=== PATIENT | male | born 1965 | race Hispanic/Latino ===

== ENCOUNTER 2025-02-18 01:30 | Inpatient (IN) | payer OTHER ==
[~2025-02-18] VITALS: Ht 172.7 cm; Wt 93.8 kg
[2025-02-18] VITALS (52 sets, daily range): BP systolic 99–140; BP diastolic 50–89; PULSE 64–81; RESP 10–26; TEMP 97.8–98.9; O2SAT 97–99
[2025-02-18] MEDS ORDERED: HEParin 10,000 UNIT/10ML (1,000 UNIT/ML) VIAL ONE (01:47)
[2025-02-18] MEDS ORDERED: LIDOCAINE HCL 400MG/20ML VIAL ONE (01:47)
[2025-02-18] MEDS ORDERED: IOHEXOL 350 MG/ML 100ML INFUS..BTL IV ONE (01:47)
[2025-02-18] MEDS ORDERED: ATROPINE 1MG SYG IVP ONE (01:47)
[2025-02-18] MEDS ORDERED: DOPamine HCL 400 MG/D5%-WATER 0 ML IV ONE (01:48)
[2025-02-18] MEDS ORDERED: HEParin-NS 1,000 UNIT/500 ML 1,000 ML IV ONE (01:48)
[2025-02-18] MEDS ORDERED: NITROGLYCERIN 50MG VIAL ONE (01:48)
[2025-02-18] MEDS ORDERED: BIVALIRUDIN 250 MG/VIAL IV ONE (01:55)
[2025-02-18] MEDS ORDERED: morPHINE 4 MG SYG ONE (02:10)
[2025-02-18] MEDS ORDERED: HEParin-NS 1,000 UNIT/500 ML 500 ML IV ONE (02:37)
[2025-02-18] MEDS ORDERED: EPTIFIBATIDE 2 MG/ML 10 ML VIAL IVP ONE (02:55)
[2025-02-18] MEDS ORDERED: D5W IV ONE (02:59)
[2025-02-18] MEDS ORDERED: HEPARIN 25000 UNIT/250 ML IV ONE (02:59)
[2025-02-18] MEDS ORDERED: EPTIFIBATIDE 75MG/100ML BOTTLE 100 ML IV ONE (03:00)
[2025-02-18] MEDS ORDERED: morPHINE 2 MG SYG ONE (03:04)
--- NOTE | 2025-02-18 03:29 | PRN ---
Cath Procedure Report CATH PROCEDURE REPORT CARDIAC CATHETERIZATION REPORT Date of Service: February 18, 2025 Left heart catheterization and PCI report After informed consent the patient was prepped and draped in the usual fashion. He presented to [facility] with an acute inferior wall ST-elevation DC. While there he received aspirin 325 clopidogrel 600 and heparin 8000 bolus and heparin drip. The patient was given 3 mg of morphine for severe pain. A six Cymraes sheath was introduced into the right femoral artery using modified Se ldinger technique. A Karen four right six guiding catheter with side holes was advanced over guidewire to the aortic root. Wire was removed and catheter engaged into the [place] creek right coronary artery. Visualization of the artery demonstrated occlusion of the mid RCA. A choice PT extra-support wire was placed across the area of stenosis into the posterolateral branch. There was reperfusion of the RCA after crossing the stenosis with the wire. Attempts to pass a 4.0 x 18 mm drug-eluting stent were unsuccessful due to severity of stenosis. In addition the guiding catheter provided poor backup. Wire and catheter removed and and AL1 guiding catheter was advanced over guidewire to the aortic root. Wire was removed and catheter engaged into the dry creek right coronary artery. A choice PT extra-support wire was then plastic again through the stenosis into the posterolateral branch. Attempts to pass the stent were unsuccessful even with guiding support. The stent was removed and a 2.5 x 12 mm balloon advanced but again would not cross the area of stenosis. Even a 1.5 x 12 mm balloon would not cross. A rudy wire was then placed in the 1.5 mm balloon was successfully crossed and dilated to eight atmospheres. Balloon was removed and the artery was then dilated with a 2.5 x 12 mm balloon. Again attempts to cross with the stent were unsuccessful and the stent was removed. A three point 0 by 15 mm balloon was then used to dilate the area of stenosis to 12 atmospheres. Balloon was removed and the 4.0 x 18 mm stent was then successfully placed across the area of stenosis and dilated to 13 atmospheres. Stenosis was reduced from 100% to 0% with normal SERGIO flow. Wires and catheter was removed and the vessel was then re visualized with a Karen four right six Cymraes diagnostic catheter which showed the stent to be widely patent but did show some distal thrombus. The patient received an Integrilin bolus and Integrilin drip was started. Heparin was restarted. Catheter was removed and a Karen four left six Cymraes diagnostic catheter was advanced over guidewire to the aortic root. The left coronary system was visualized in multiple views. This demonstrated a widely patent left main and LAD and diagonal arteries. The circumflex artery is a nondominant vessel and gives rise to a single large obtuse marginal artery. There was a mid 80% stenosis in the circumflex artery before the obtuse marginal artery. The catheter was removed and a pigtail catheter was then advanced over guidewire and across the aortic valve. Hemodynamics measured and a pullback with a continuous hemodynamic monitoring was performed. There was no evidence of aortic stenosis left ventricular end- diastolic pressure was 22 mm Hg. Summary: Successful drug-eluting stent to the mid RCA with distal thrombus in the posterolateral branch and PDA treated with Integrilin and heparin. The patient has been transferred to the intensive care unit with line in place for further management. Report dictated by HORACIO Valencia MD, MD February 18, 2025 03:29
[2025-02-18] MEDS: ondanSETRON 4MG INJ IVP SCH (03:30)
[2025-02-18] MEDS ORDERED: EPTIFIBATIDE 75MG/100ML BOTTLE 100 ML IV SCH (03:30)
[2025-02-18] MEDS ORDERED: TEMAZepam 30 MG CAP PO PRN (03:30)
[2025-02-18] MEDS ORDERED: ondanSETRON 4MG INJ IVP PRN (03:30)
--- NOTE | 2025-02-18 03:33 | CONS ---
[facility] Cardiology Consultation Note Chief complaint: This is a 59-year-old male who was transferred from [facility] with an acute inferior wall ST-elevation [place]. History of present illness: The patient has been having some residual pains over the last few days that he attributed to indigestion. Pain at this point it woke him from sleep and would not resolve. He had some associated shortness of breath and came to the emergency room at [facility] where EKG showed ST elevations inferiorly with reciprocal changes anteriorly. He was treated with aspirin full dose loading of clopidogrel and heparin and placed on a heparin drip and transferred emergently for left heart catheterization. Past medical history: He has a history of hypertension diabetes and dyslipidemia. Review of systems: No syncope PND orthopnea palpitations or edema. Allergies: No known allergies Social history: He is a nonsmoker Prior surgical history unknown Physical exam: Blood pressure 130/70 heart rate in the 70s and regular. There was no elevation of the jugular venous pressure with no bruits or murmurs appreciable. S1 normal S2 physiologically split. Abdomen obese soft nontender. Extremities show no edema. Dorsalis pedis pulses are 2+ bilaterally radial pulses 2+ bilaterally. Laboratory studies: Has been ordered and are pending. Assessment: 1. Acute inferior wall ST-elevation [place] 2. Diabetes mellitus type 2 3. Dyslipidemia 4. Hypertension Plan: Risks and benefits of left heart catheterization PCI has been fully discussed and patient request to proceed. HORACIO SAMS MD February 18, 2025 03:33
[2025-02-18] MEDS ORDERED: DEXTROSE 50%-WATER 50 ML DISP.SYRIN IV PRN (04:00)
[2025-02-18] MEDS ORDERED: GLUCAGON 1MG KIT 1 MG ML IM PRN (04:00)
[2025-02-18] MEDS ORDERED: HEParin 5,000 UNIT VIAL IV PRN (04:30)
[2025-02-18] MEDS: acetaMINOPHEN WITH coDEINE 1 TAB TAB PO PRN ×2 (04:54→09:59)
[2025-02-18] MEDS: HEParin 25,000 UNITS/250ML D5W 250 ML IV SCH (04:59)
[2025-02-18] MEDS: NITROGLYCERIN 50MG/D5W 250ML 1 BOT IV PRN (05:45)
[2025-02-18] MEDS ORDERED: METF-446 PO (06:08)
[2025-02-18] MEDS ORDERED: ATOR40TA71 PO (06:08)
[2025-02-18] MEDS ORDERED: LISI10TA24 PO (06:08)
[2025-02-18 06:27] LABS: HEMATOCRIT 40.3 % (42-54); MEAN CORPUSCULAR HEMOGLOBIN 30.6 pg (27.0-33.0); MEAN CORPUSCULAR HGB CONC 34.7 g/dL (32.0-36.0); MEAN CORPUSCULAR VOLUME 88.2 fL (79-99); RED BLOOD CELL COUNT(AUTO) 4.57 MIL/uL (4.50-6.20); RED CELL DISTRIBUTION WIDTH 11.9 % (11.0-15.5); WHITE BLOOD COUNT (AUTO) 18.5 K/uL (4.8-10.8)
[2025-02-18 06:40] LABS: INR 1.05 (0.85-1.15); PROTHROMBIN TIME 11.1 SEC (9.6-11.6)
[2025-02-18 06:41] LABS: PARTIAL THROMBOPLASTIN TIME 55.5 SEC (26.3-35.5)
[2025-02-18 06:42] LABS: ALBUMIN 3.8 g/dL (3.5-5.0); BILIRUBIN,TOTAL 0.6 mg/dL (0.2-1.0); CREATININE 1.1 mg/dL (0.5-1.3); MAGNESIUM 1.7 mg/dL (1.80-2.40); PHOSPHORUS 4.1 mg/dL (2.5-4.9); POTASSIUM 4.7 mmol/L (3.5-5.1); TOTAL PROTEIN, SERUM 7.2 g/dL (6.0-8.3)
--- NOTE | 2025-02-18 07:07 | PN ---
[facility] Cardiology Progress Note CARDIOLOGY PROGRESS NOTE FEBRUARY 18, 2025 1. Acute inferior wall ST-elevation SD 2. CAD status post drug-eluting stent in the mid RCA with residual 80% mid circumflex stenosis 3. Dyslipidemia 4. Hypertension 5. Diabetes mellitus type 2 Blood pressure is running 120 systolic heart rate is in the 60s and the patient is afebrile white count was 75514 hemoglobin 14 platelet count 259001. Potassium 4.7 BUN 16 creatinine 1.1 with estimated GFR of 78. Patient continues on heparin protocol Integrilin protocol. He is also receiving aspirin atorvastatin clopidogrel insulin scale metoprolol tartrate pantoprazole. A 2D echocardiogram is pending to evaluate LV function. Intravenous nitroglycerin was started during the night for some residual pain. This morning the patient is pain-free. We will plan on discontinuing heparin and Integrilin after 6 hours of infusion. We will monitor PT and remove lines later today. Cath site shows no bleeding or hematoma. Posterior tibial pulses and dorsalis pedis pulses are palpable on both legs. No new murmurs are appreciable. Review 2D echo when available. Glucose on admission was 238 and will be managed by the hospitalist service. HORACIO SAMS MD February 18, 2025 07:07
[2025-02-18] MEDS: cloPIDOgrel 75MG TAB PO SCH (07:53)
[2025-02-18] MEDS: PANTOPrazole 40 MG TAB DR PO SCH (07:53)
[2025-02-18] MEDS: metoPROLOL tartRATE 25 MG TAB PO SCH (07:53)
[2025-02-18] MEDS: ASPIRIN 81MG CHEW TAB PO SCH (07:53)
[2025-02-18] MEDS: INSULIN humuLIN R 100 UNIT/ML 3ML SQ SCH (07:54)
--- NOTE | 2025-02-18 07:54 | HP ---
[facility] HISTORY & PHYSICAL Date Patient Seen: February 18, 2025 Time of Visit: 07:54 Supervising Physician: [ ] Primary Care Physician: [ ] Outpatient Specialists: [ ] Inpatient Consults: [ ] PROBLEM LIST: 1. [ ] 2. [ ] 3. [ ] 4. [ ] 5. [ ] HPI: [ ] PAST MEDICAL HX: see above PAST SURGICAL HX: noncontributory SOCIAL HISTORY: No tobacco, ETOH, or illicit drug use Coded Allergies: hazelnut (Unverified Allergy, Severe, SWELLING, 02/18/25) pecan nut (Unverified Allergy, Severe, SWELLING, 02/18/25) REVIEW OF SYSTEMS: 12 point ROS reviewed with patient. Pertinent positives mentioned above. Otherwise negative. PHYSICAL EXAM: GENERAL: alert, weak, awake oriented x 3 HEENT: EOMI, Sclera non icteric, moist mucosa NECK: Supple, no JVD, trachea midline LUNGS: Clear breath sounds bilaterally. No wheezes HEART: Regular rate and rhythm. Normal S1 and S2, without murmurs ABD: Abdomen soft, nontender. Bowel sounds present EXT: No clubbing cyanosis or edema NEURO: Alert and oriented to person, follows commands Vital Signs (last 8hr) Date Time Temp Pulse Resp B/P (MAP) Pulse Ox O2 Delivery O2 Flow Rate FiO2 02/18/25 05:45 122/75 02/18/25 04:30 98.4 68 13 116/76 98 Room Air 02/18/25 04:15 66 10 124/75 98 Room Air 02/18/25 04:00 69 11 129/81 98 Room Air LABS: Hematology Labs: Test 02/18/25 06:17 Range/Units White Blood Count 18.5 H 4.8-10.8 K/uL Red Blood Count 4.57 4.50-6.20 MIL/uL Hemoglobin 14.0 14.0-18.0 g/dL Hematocrit 40.3 L 42-54 % Mean Corpuscular Volume 88.2 79-99 fL Mean Corpuscular Hemoglobin 30.6 27.0-33.0 pg Mean Corpuscular Hemoglobin Concent 34.7 32.0-36.0 g/dL Red Cell Distribution Width 11.9 11.0-15.5 % Platelet Count 271 130-400 K/uL Mean Platelet Volume 8.2 7.5-10.5 fL Nucleated Red Blood Cells 0.0 0.0-0.19 % Chemistry Labs: Test 02/18/25 07:48 02/18/25 06:17 Range/Units Whole Blood Glucose 217 H 70-110 MG/DL Sodium Level 134 L 136-145 mmol/L Potassium Level 4.7 3.5-5.1 mmol/L Chloride Level 99 L 101-111 mmol/L Carbon Dioxide Level 24 21-32 mmol/L Blood Urea Nitrogen 16 7-18 mg/dL Creatinine 1.1 0.5-1.3 mg/dL Glomerular Filtration Rate Calc 78 >90 mL/min Random Glucose 238 H 70-105 mg/dL Total Calcium 9.2 8.5-10.1 mg/dL Phosphorus Level 4.1 2.5-4.9 mg/dL Magnesium Level 1.70 L 1.80-2.40 mg/dL Total Bilirubin 0.6 # 0.2-1.0 mg/dL Aspartate Amino Transf (AST/SGOT) 258 H 10-37 U/L Alanine Aminotransferase (ALT/SGPT) 58 # 12-78 U/L Alkaline Phosphatase 44 L 50-136 U/L Total Protein 7.2 6.0-8.3 g/dL Albumin 3.8 3.5-5.0 g/dL Coagulation Labs: Test 02/18/25 06:17 Range/Units Prothrombin Time 11.1 9.6-11.6 SEC Prothromb Time International Ratio 1.05 0.85-1.15 Activated Partial Thromboplast Time 55.5 H 26.3-35.5 SEC DIAGNOSTICS / RADIOLOGY RESULTS: [ ] PLAN NEURO: Minimize central acting medications as possible. Fall Precautions. Well lighted room through the day and minimize interruptions through the night to prevent acute delirium. PULMONARY: Supplemental 02 as needed Titrate Fio2 to keep Spo2 > or = 90% DuoNeb�s and CPT as needed IS hourly while awake for pulmonary hygiene Out of bed to chair as tolerated VAP Bundle Vent/BIPAP Settings: [ ] Driving pressure: [ ] P Plat: [ ] Static C: [ ] Static R: [ ] P/F Ratio: [ ] CARDIOVASCULAR: Follow hemodynamics. Titrate vasopressor to keep MAP >65 or systolic blood pressure >95mmHg DIPS: [ ] LINES: [ ] GI & NUTRITION: Continue nutritional support Aspirations precautions Prokinetic agents and laxatives as needed KIDNEYS & ELECTROLYTES: Strict monitoring of intake and output Daily weights Avoid nephrotoxic agents Monitor electrolytes and replace as needed Goal urine output of 30mL/hr or 0.5mL/kg/hr Urine output: [ ] Fluid Balance: [ ] ENDOCRINE: Maintain blood glucose between 100-180 at all times. Insulin sliding scale for blood glucose management INFECTIOUS DISEASE: Trend temperature. Rapp-culture if febrile. Micro: [ ] Antibiotics: [ ] HEMATOLOGY & COAGULATION: Monitor H&H. Keep Hgb > 7 Transfuse 1 unit of PRBC for Hgb < 7 Transfuse 1 pack of platelets of platelets < 20, 000 Watch for any signs and symptoms of bleeding SKIN: Pressure ulcer prevention per facility protocol Rehab: PT/OT Prophylaxis: GI: [ ] DVT: [ ] Code Status: Full Resuscitation Disposition: [ ] Other: Total patient care time exceeds 35 minutes excluding all procedures. Case was discussed and seen with my supervising physician. The above plan was formulated and agreed upon. JONI PAN AUTOMOTIVE DRIVABILITY TECHNICIAN February 18, 2025 07:54
--- NOTE | 2025-02-18 11:06 | HP ---
[facility] PHYS[facility] Date of Service: February 18, 2025 Time of Service: 10:47 HISTORY OF PRESENT ILLNESS: [ ] This is a 59-year-old male that was transferred from [facility] with a in acute inferior STEMI went straight to left heart cath eterization. Patient reports his chief complaint was chest pain. Onset patient reported he was awakened at 1:00 a.m. this morning. State 10/10 on pain scale. Radiate to bilateral upper arm. Aggravating factors deep breath, alleviating factors none. Associated symptoms shortness a breath, diaphoretic, GI symptoms. Patient went straight to ER for further evaluation and treatment. Patient is reports smoking tobacco products cigarettes one pack every two weeks. Drinks beer on [id number] pack. Patient is seen in room 206 left heart catheterization status post drug-eluting stent in the mid RCA with residual 80% mid circumflex stenosis Patient is fully awake alert oriented x3. right groin no numbness no tingling, the patient is chest pain free now. REVIEW OF SYSTEMS a 14 point ROS obtained all relevant positive documented otherwise ROS negative. PAST MEDICAL HISTORY: [ ] refer to HPI PAST SURGICAL HISTORY: [ ]appendectomy PAST SOCIAL HISTORY: [ ] smoke cigarettes: one pack every 2 wks. ETOH use: Beer 12 pack on Weekends on occasionally throughout the week. FAMILY HISTORY: [ ]father: Heart Disease Mother/father: DM, HTN, HLD Coded Allergies: hazelnut (Unverified Allergy, Severe, SWELLING, 02/18/25) pecan nut (Unverified Allergy, Severe, SWELLING, 02/18/25) PHYSICAL EXAM GENERAL APPEARANCE: The patient is awake, alert, and oriented, in no acute cardiopulmonary distress. NEUROLOGICAL: Cranial nerves II-XII grossly intact. Motor is 5/5 in bilateral upper and lower extremities proximal to distal. No sensory deficits. HEENT: Face is symmetric. Pupils are equal and reactive. Extraocular movements are intact. NECK: Supple. No JVD. No thyromegaly. No submental, submandibular, pre- /postauricular, occipital or supraclavicular lymphadenopathy. CHEST: Normal chest expansion. No Telemetry. LUNGS: Absence of any rales, rhonchi or any wheezing. CARDIOVASCULAR: Regular. S1 and S2 normal. No appreciable rubs, murmurs or gallops. ABDOMEN: Soft, nontender, and nondistended. There is no rebound, voluntary guarding, or rigidity. : Deferred. No Reeves. EXTREMITIES: Non-edematous and not cyanotic. No clubbing. Good capillary refill. SKIN: No skin breakdown. Vital Sign (Last 24 Hours) 02/18/25 02/18/25 08:00 09:00 Temp 98.8 Pulse 72 Resp 15 B/P (MAP) 140/82 Pulse Ox 98 O2 Delivery Room Air O2 Flow Rate 0 FiO2 21 Intake & Output (last 24hrs) 0 02/17/25 02/17/25 02/18/25 15:00 23:00 07:00 Intake Total 35.0 ml Balance 35.0 ml LABS: Laboratory: Test 02/18/25 07:48 02/18/25 06:17 Range/Units Whole Blood Glucose 217 H 70-110 MG/DL White Blood Count 18.5 H 4.8-10.8 K/uL Red Blood Count 4.57 4.50-6.20 MIL/uL Hemoglobin 14.0 14.0-18.0 g/dL Hematocrit 40.3 L 42-54 % Mean Corpuscular Volume 88.2 79-99 fL Mean Corpuscular Hemoglobin 30.6 27.0-33.0 pg Mean Corpuscular Hemoglobin Concent 34.7 32.0-36.0 g/dL Red Cell Distribution Width 11.9 11.0-15.5 % Platelet Count 271 130-400 K/uL Mean Platelet Volume 8.2 7.5-10.5 fL Nucleated Red Blood Cells 0.0 0.0-0.19 % Prothrombin Time 11.1 9.6-11.6 SEC Prothromb Time International Ratio 1.05 0.85-1.15 Activated Partial Thromboplast Time 55.5 H 26.3-35.5 SEC Sodium Level 134 L 136-145 mmol/L Potassium Level 4.7 3.5-5.1 mmol/L Chloride Level 99 L 101-111 mmol/L Carbon Dioxide Level 24 21-32 mmol/L Blood Urea Nitrogen 16 7-18 mg/dL Creatinine 1.1 0.5-1.3 mg/dL Glomerular Filtration Rate Calc 78 >90 mL/min Random Glucose 238 H 70-105 mg/dL Total Calcium 9.2 8.5-10.1 mg/dL Phosphorus Level 4.1 2.5-4.9 mg/dL Magnesium Level 1.70 L 1.80-2.40 mg/dL Total Bilirubin 0.6 # 0.2-1.0 mg/dL Aspartate Amino Transf (AST/SGOT) 258 H 10-37 U/L Alanine Aminotransferase (ALT/SGPT) 58 # 12-78 U/L Alkaline Phosphatase 44 L 50-136 U/L Total Protein 7.2 6.0-8.3 g/dL Albumin 3.8 3.5-5.0 g/dL Current Medications Medications (Trade) Dose Ordered Sig/Arash Route PRN Reason Start Time Stop Time Status Last Admin Dose Admin Acetaminophen/ Codeine Phosphate (TYLenol-coDEINE TAB) 1 tab Q4H PRN PO MILD PAIN (1-3) 02/18/25 03:30 03/20/25 03:29 02/18/25 04:54 1 TAB Acetaminophen/ Codeine Phosphate (TYLenol-coDEINE TAB) 2 tab Q4H PRN PO MOD/SEVERE PAIN LEVEL 4 TO 10 02/18/25 03:30 03/20/25 03:29 02/18/25 09:59 2 TAB Aspirin (Aspirin 81mg Chew Tab) 81 mg DAILY PO 02/18/25 09:00 03/20/25 08:59 02/18/25 07:53 81 MG Atorvastatin Calcium (LIPItor 40MG) 40 mg HS PO 02/18/25 21:00 03/20/25 20:59 Clopidogrel Bisulfate (plaVIX 75MG) 75 mg DAILY PO 02/18/25 09:00 03/20/25 08:59 02/18/25 07:53 75 MG Dextrose (D50w) 50 ml AD PRN IV HYPOGLYCEMIA PROTOCOL 02/18/25 04:00 03/20/25 03:59 Eptifibatide 100 ml @ 0 mls/hr PROTOCOL IV 02/18/25 03:30 02/18/25 09:00 DC Glucagon (Glucagon 1mg Kit) 1 mg AD PRN IM HYPOGLYCEMIA PROTOCOL 02/18/25 04:00 03/20/25 03:59 Heparin Sodium (Porcine) (HEParin 5,000 UNIT VIAL) *calculation based on ACTUAL B... AD PRN IV HEPARIN PROTOCOL 02/18/25 04:30 02/18/25 09:00 DC Heparin Sodium/ Dextrose 250 ml @ 0 mls/hr Q6H IV 02/18/25 04:30 02/18/25 09:00 DC 02/18/25 04:59 18.53 MLS/HR Insulin Human Regular (humuLIN R 100 UNIT/ML 3ML) INSULIN SLIDING SCAL... ACHS SQ 02/18/25 07:30 03/20/25 07:29 02/18/25 07:54 3 UNIT Metoprolol Tartrate (loprESSOR) 12.5 mg BID PO 02/18/25 09:00 03/20/25 08:59 02/18/25 07:53 12.5 MG Morphine Sulfate (morPHINE 5MG VIAL) 3 mg ONCALL IVP 02/18/25 03:30 02/18/25 04:40 DC Nitroglycerin/ Dextrose 0 ml @ 0 mls/hr PROTOCOL PRN IV [id number] ORDERS 02/18/25 03:30 02/18/25 07:12 DC 02/18/25 05:45 1.5 MLS/HR Ondansetron HCl (zoFRAN 4MG INJ) 4 mg ONCALL IVP 02/18/25 03:30 02/18/25 04:40 DC Ondansetron HCl (zoFRAN 4MG INJ) 4 mg Q4H PRN IVP NAUSEA/VOMITING 02/18/25 03:30 03/20/25 03:29 Pantoprazole Sodium (PROTonix 40MG TAB) 40 mg DAILY PO 02/18/25 09:00 03/20/25 08:59 02/18/25 07:53 40 MG Temazepam (restORIL 30 MG CAP) 30 mg HS PRN PO INSOMNIA/SLEEP 02/18/25 03:30 02/25/25 03:29 DIAGNOSTICS / RADIOLOGY: [ ] ASSESSMENT: acute inferior STEMI POA DM type II Essential HTN Hyperlipidemia obesity: BMI 32.5 active smoker POA ETOH use POA PLAN: Admit: ICU condition: Guarded Status: Full code IVF: NS at 75 mL/hour Consultants assembler equipment's, critical team Status post left heart catheterization proceed with ACS protocol heparin postprocedure discontinued patient is on [id number] mg p.o. daily. Core measures beta-blockers metoprolol 12.5 mg p.o. twice a day, asa 81 mg po daily, atorvastatin 40 mg p.o. at bedtime Test: Echo to evaluate LV function Oxygen supplement to keep O2 sats above 94% as needed A.c. HS monitoring with sliding scale coverage. Labs cbc, cmp, mag+ A1c, lipid panel Replace electrolytes as needed as per protocol to keep potassium above 4.0 magnesium 2.0. PRN: MEDICATIONS Tylenol 650 mg po every 4 hrs for fever Zofran 4 mg IV every 6 hrs for n/v Hydralazine 5 mg IV every 4 hrs systolic pressure > 160 bowel regiment: lactulose 20 gm PO BID PRN constipation Pain management: Supportive measures: Tylenol No. 3 as needed DVT ppx, GI ppx with PUD all questions answered time spent: > 35 min Supervising MD: Dr. Galvan c/d This document was generated in part using voice recognition software, occasional wrong word or sound alike substitutions may have occurred due to the inherent limitations of voice recognition software. Read the chart carefully and recognize using context, where the substitutions have occurred. Although every effort was made to edit the content, rn or lvn and typing errors may occur ADVANCED CARE PLANNING 1. Which of the following were discussed? Hospice Care - Yes / No Therapeutic options - Yes / No Advance Directives - Yes / No Other discussions - 2. Discussed with who? 3. Voluntary nature of this service was explained to the patient? Yes / No 4. Amount of time spent - 5. Reviewed by Physician? (if this service was performed by NPP) Yes / No ATTESTATION BY PHYSICIAN I have seen and examined the patient. I reviewed the documentation, medical decision making, and treatment plan as noted by the mid-level provider above. I agree with the findings and plan of care. CORTEZ GALVAN MD, ELIZABETH NP February 18, 2025 11:06
--- NOTE | 2025-02-18 11:20 | NUR ---
DCP CM MET WITH PT THIS MORNING INITIAL ASSESSMENT DONE. PATIENT IS INDEPENDENT PRIOR TO ADMISSION, LIVES AT HOME ALONE. DENIES ANY EQUIPMENT/SERVICES. FEELS SAFE TO GO BACK HOME, STILL DRIVE, DAUGHTER ABLE TO ASSIST WITH TRANSPORTATION AND NEEDS NECESSARY. DCP HOME ONCE STABLE. CM TO CONTINUE TO FOLLOW UP. Addendum: 02/18/25 at 1122 by GEORGE HERRING LVN CM Amended: Links added.
--- NOTE | 2025-02-18 11:26 | CONS ---
[facility] CONSULTATION NOTE Date Patient Seen: February 18, 2025 Time of Visit: 11:11 Supervising Physician: Matti Alcantara MD Reason for Consultation: critical care consult Primary Care Physician: Daniel Jesus MD Outpatient Specialists: Jerod Sanchez MD Inpatient Consults: DR Edin SIMPSON Attending: Veena Watson MD PROBLEM LIST: - acute inferior wall ST-elevation [place], POA -CAD status post drug-eluting stent in the mid RCA with residual 80% mid circumflex stenosis -leukocytosis -dyslipidemia -essential hypertension -hyperglycemia in the presence of type 2 diabetes mellitus -hypomagnesemia -transaminitis -suspected JAMES undiagnosed and untreated HPI: This is a 59-year-old male with a past medical history of essential hypertension, dyslipidemia, type 2 diabetes mellitus and obesity who presented from [facility] for inferior wall ST-elevation [place]. he is status post left heart catheterization drug-eluting stent placement to RCA by Dr. Jesus. Admitted to the ICU on heparin and Integrilin drip. Patient remains with right femoral sheath no ecchymosis hematoma or bruising noted to site. He remains in reverse Trendelenburg. Bilateral pedal pulses present 2+. Patient reports occasional chest pain 10/25. Currently hemodynamically stable blood pressure 140/82 heart rate in the 70s respiratory rate of 15 saturating 98% on room air and afebrile. 2D echo has been done pending report. We will continue to follow cardiology recommendations. PAST MEDICAL HX: see above PAST SURGICAL HX: noncontributory SOCIAL HISTORY: No tobacco, ETOH, or illicit drug use Coded Allergies: hazelnut (Unverified Allergy, Severe, SWELLING, 02/18/25) pecan nut (Unverified Allergy, Severe, SWELLING, 02/18/25) REVIEW OF SYSTEMS: General: No malaise or fever. Neurological: No fainting episodes or seizures. HEENT: No nasal congestion or nasal secretion. Respiratory: No cough, shortness of breath, or wheezing Cardiac: Yes to mild chest pain but improved, no palpitations no shortness a breath. Gastrointestinal: No vomiting or diarrhea. Genitourinary: No dysuria hematuria. Skin: No rashes or lesions. Hematological: No bruises or bleeding. Musculoskeletal: No joint pains or arthralgias. Psychiatric: No depression or panic attacks. PHYSICAL EXAM: GENERAL: alert, weak, awake oriented x 3 HEENT: EOMI, Sclera non icteric, moist mucosa NECK: Supple, no JVD, trachea midline LUNGS: Clear breath sounds bilaterally. No wheezes HEART: Regular rate and rhythm. Normal S1 and S2, without murmurs ABD: Abdomen soft, nontender. Bowel sounds present EXT: No clubbing cyanosis or edema, bilateral pedal pulses 2+, right femoral sheath in place no hematoma bruising or swelling to site. NEURO: Alert and oriented to person, follows commands Vital Signs (last 8hr) Date Time Temp Pulse Resp B/P (MAP) Pulse Ox O2 Delivery O2 Flow Rate FiO2 02/18/25 09:00 72 15 140/82 98 Room Air 02/18/25 08:45 67 12 134/82 97 Room Air 02/18/25 08:30 69 18 135/87 96 Room Air 02/18/25 08:15 70 10 134/78 98 Room Air 02/18/25 08:00 98.8 76 11 135/82 97 Room Air 02/18/25 08:00 98 Room Air* 0 21 02/18/25 07:45 79 15 120/76 94 Room Air 02/18/25 07:30 71 11 120/73 99 Room Air 02/18/25 07:15 71 11 120/73 99 Room Air 02/18/25 07:00 78 16 135/74 97 Room Air 02/18/25 06:45 75 16 118/79 97 Room Air 02/18/25 05:45 122/75 02/18/25 04:30 98.4 68 13 116/76 98 Room Air 02/18/25 04:15 66 10 124/75 98 Room Air 02/18/25 04:00 69 11 129/81 98 Room Air LABS: Hematology Labs: Test 02/18/25 06:17 Range/Units White Blood Count 18.5 H 4.8-10.8 K/uL Red Blood Count 4.57 4.50-6.20 MIL/uL Hemoglobin 14.0 14.0-18.0 g/dL Hematocrit 40.3 L 42-54 % Mean Corpuscular Volume 88.2 79-99 fL Mean Corpuscular Hemoglobin 30.6 27.0-33.0 pg Mean Corpuscular Hemoglobin Concent 34.7 32.0-36.0 g/dL Red Cell Distribution Width 11.9 11.0-15.5 % Platelet Count 271 130-400 K/uL Mean Platelet Volume 8.2 7.5-10.5 fL Nucleated Red Blood Cells 0.0 0.0-0.19 % Chemistry Labs: Test 02/18/25 11:04 02/18/25 06:17 Range/Units Whole Blood Glucose 214 H 70-110 MG/DL Sodium Level 134 L 136-145 mmol/L Potassium Level 4.7 3.5-5.1 mmol/L Chloride Level 99 L 101-111 mmol/L Carbon Dioxide Level 24 21-32 mmol/L Blood Urea Nitrogen 16 7-18 mg/dL Creatinine 1.1 0.5-1.3 mg/dL Glomerular Filtration Rate Calc 78 >90 mL/min Random Glucose 238 H 70-105 mg/dL Total Calcium 9.2 8.5-10.1 mg/dL Phosphorus Level 4.1 2.5-4.9 mg/dL Magnesium Level 1.70 L 1.80-2.40 mg/dL Total Bilirubin 0.6 # 0.2-1.0 mg/dL Aspartate Amino Transf (AST/SGOT) 258 H 10-37 U/L Alanine Aminotransferase (ALT/SGPT) 58 # 12-78 U/L Alkaline Phosphatase 44 L 50-136 U/L Total Protein 7.2 6.0-8.3 g/dL Albumin 3.8 3.5-5.0 g/dL Coagulation Labs: Test 02/18/25 06:17 Range/Units Prothrombin Time 11.1 9.6-11.6 SEC Prothromb Time International Ratio 1.05 0.85-1.15 Activated Partial Thromboplast Time 55.5 H 26.3-35.5 SEC DIAGNOSTICS / RADIOLOGY RESULTS: [ ] PLAN Continue ICU care for now Continuous telemetry monitoring Follow cardiology recommendations 2D echocardiogram done follow results Patient to continue heparin and Integrilin drip per Cardiology recommendations PPI for risk of bleeding Statin therapy Glucose goal less than 180 mg/dL DAPT with Plavix and aspirin has been started per Cardiology, beta gregorio, statin therapy Consider referral to cardiac rehab once ready for discharge NEURO: Minimize central acting medications as possible. Fall Precautions. Well lighted room through the day and minimize interruptions through the night to prevent acute delirium. PULMONARY: Supplemental 02 as needed Titrate Fio2 to keep Spo2 > or = 90% DuoNeb�s and CPT as needed IS hourly while awake for pulmonary hygiene Out of bed to chair as tolerated CARDIOVASCULAR: Follow hemodynamics. Titrate vasopressor to keep MAP >65 or systolic blood pressure >95mmHg Drips: Interrogation Heparin LINES: PIV Right femoral sheath GI & NUTRITION: Continue nutritional support Aspirations precautions Prokinetic agents and laxatives as needed Start clear liquid diet KIDNEYS & ELECTROLYTES: Strict monitoring of intake and output Daily weights Avoid nephrotoxic agents Monitor electrolytes and replace as needed Goal urine output of 30mL/hr or 0.5mL/kg/hr Urine output: [ ] Fluid Balance: [ ] ENDOCRINE: Maintain blood glucose between 100-180 at all times. Insulin sliding scale for blood glucose management INFECTIOUS DISEASE: Trend temperature. Rapp-culture if febrile. Micro: [ ] Antibiotics: [ ] None HEMATOLOGY & COAGULATION: Monitor H&H. Keep Hgb > 7 Transfuse 1 unit of PRBC for Hgb < 7 Transfuse 1 pack of platelets of platelets < 20, 000 Watch for any signs and symptoms of bleeding SKIN: Pressure ulcer prevention per facility protocol Rehab: PT/OT Prophylaxis: GI: Protonix DVT: Heparin drip Code Status: Full Resuscitation Disposition: Continue ICU care care Other: Total patient care time exceeds 35 minutes excluding all procedures. Case was discussed and seen with my supervising physician. The above plan was formulated and agreed upon. ATTESTATION BY PHYSICIAN I attest that I reviewed and discussed the case with the Physician Supervisor Model Making as well as agree with the Physician Supervisor Model Making's findings, plans of care, and documentation above. Matti France MD, NELLY J ARNP February 18, 2025 11:26
--- NOTE | 2025-02-18 15:58 | HMCIMG ---
Exam Type: CHEST 1VW Clinical Information: hypoxic resp failure / and post heart ctah Comparison: None Findings: The lungs are clear of infiltrates. The heart is normal in size. The bony and soft tissue structures of the chest are unremarkable. Impression: Clear lungs.
--- NOTE | 2025-02-18 17:40 | HMCSR ---
APPROVED REPORT EXAM: Two-dimensional and M-mode echocardiogram with Doppler and color Doppler. INDICATION ICD: inferior stemi 2D Dimensions RVDd4.1 cmLVEF(%)34.4 (>50%)LVED Vol(simp.)70.0 mL IVSd0.8 (0.7-1.1cm)FS(%)16 %LVES Vol(simp.)45.0 mL LVDd4.2 (3.8-5.6cm)LA (2D)3.6 (1.6-4.0cm)LVEF(%, simp.)36 % PWd0.8 (0.7-1.1cm)Ao Root(2D)3.5 (2.0-3.7cm)LA ESV INDEX (BP)26.80 mL/m2 LVDs3.6 (2.5-4.0cm)LVOT diam2.2 (1.8-2.4cm) Deformation Strain Apical 4-11.5 % Apical 2-10.6 % Apical 3-7.1 % Global Strain-9.7 % M-Mode Dimensions EPSS1.4 cm LA (MM)3.8 (1.6-4.0cm) Ao Root(MM)3.1 (2.0-3.7cm) Aortic Valve AoV Vmax1.0 m/Sarah Peak GR3.8 mmHgLVOT Vmax0.8 m/s AoV VTI0.2 mAo Mean GR1.9 mmHgLVOT VTI0.16 m LORRAINE (VMAX)3.29 cm2AVA (VTI) 3.3 cm2 Mitral Valve MV E Vmax62.8 cm/sDECEL Lbln888 ms MV A Vmax85.4 cm/sP 1/2 T104 ms E/A ratio0.7MVA (PHT)2.1 cm2 TDI E/E' Ahkfwd94.6E/E' Lateral5.8 Medial E' Peak V5.42 cm/sLateral E' Peak V10.80 cm/s Left Ventricle The left ventricle is normal size. There is normal left ventricular wall thickness. LVEF is 35-40%. G rade I diastolic function. Right Ventricle The right ventricle is normal size. The right ventricular systolic function is normal. Atria The left atrium size is normal. The right atrium size is normal. Aortic Valve The aortic valve is normal in structure. No aortic regurgitation is present. There is no aortic valvu lar stenosis. Mitral Valve The mitral valve is normal in structure. Mitral regurgitation is trace. There is no mitral valve sten osis. Tricuspid Valve The tricuspid valve is normal in structure. There is no tricuspid valve regurgitation noted. Pulmonic Valve The pulmonary valve is normal in structure. There is no pulmonic valvular regurgitation. Great Vessels The aortic root is normal in size. IVC is not well visualized. Pericardium There is no pericardial effusion. Conclusion The left ventricle is normal size. LVEF is 35-40%. Grade I diastolic function. The right ventricle is normal size. The right ventricular systolic function is normal. The left atrium size is normal. The right atrium size is normal. No valvular pathology. There is no pericardial effusion.
--- NOTE | 2025-02-18 20:05 | EKG ---
[facility] Test Date: 2025-02-18 Test Time: 14:48:11 Pat Name: DARREL PEARSON Department: [facility] Room: 206 1 Gender: M Teacher Music: MARILU MIRELES : 1965 Requested By: HORACIO SAMS Order Number: [id number] Reading MD: Snow Gore Measurements Intervals [place] Rate: 66 P: 35 TX: 204 QRS: -46 QRSD: 90 T: 61 QT: 363 QTc: 382 Interpretive Statements Sinus rhythm Borderline prolonged [place] interval Inferoposterior infarct, acute (RCA) Lateral infarct, acute No previous ECG available for comparison Electronically Signed On 02-19-2025 09:19:08 CDT by Snow Gore Please click the below link to view image of tracing.
[2025-02-18] MEDS: atorVAStatin 40 MG TABLET PO SCH (20:12)
[2025-02-18] MEDS ORDERED: FAMOTIDINE 20MG VIAL IV SCH (21:00)
[2025-02-19] VITALS (22 sets, daily range): BP systolic 103–139; BP diastolic 46–79; PULSE 68–88; RESP 10–36; TEMP 98–100.3; O2SAT 97
[2025-02-19 05:00] LABS: HEMATOCRIT 38.7 % (42-54); MEAN CORPUSCULAR HGB CONC 34.9 g/dL (32.0-36.0); MEAN CORPUSCULAR VOLUME 88.8 fL (79-99); RED BLOOD CELL COUNT(AUTO) 4.36 MIL/uL (4.50-6.20); WHITE BLOOD COUNT (AUTO) 15.9 K/uL (4.8-10.8)
[2025-02-19 05:34] LABS: CARBON DIOXIDE 28 mmol/L (21-32); CHLORIDE 97 mmol/L (101-111); CHOLESTEROL 110 mg/dL (<200); CREATININE 1.1 mg/dL (0.5-1.3); GLOMERULAR FILTR. RATE CALC 78 mL/min (>90); GLUCOSE,RANDOM 183 mg/dL (70-105); HDL CHOLESTEROL 50 mg/dL (29-71); LDL DIRECT 55 mg/dL (0-99); POTASSIUM 5.2 mmol/L (3.5-5.1); SODIUM SERUM 131 mmol/L (136-145); THYROID STIMULATING HORMONE 2.52 uIU/mL (0.36-3.74); TRIGLYCERIDES 71 mg/dL (30-200); UREA NITROGEN, BLOOD 15 mg/dL (7-18)
[2025-02-19 05:36] LABS: HEMOGLOBIN A1C 7.4 % (4.0-6.0)
--- NOTE | 2025-02-19 06:58 | PN ---
[facility] Cardiology Progress Note CARDIOLOGY PROGRESS NOTE FEBRUARY 19, 2025 Problems: 1. Acute inferior wall ST-elevation [place] 2. CAD status post drug-eluting stent in the mid RCA with residual 80% mid circumflex stenosis 3. Dyslipidemia 4. Hypertension 5. Diabetes mellitus type 2 The patient has no shortness of breath. Blood pressure is running between 114 and 128 systolic. Heart rate is in the 70s the patient is afebrile. There was no elevation of the jugular venous pressure lungs are clear no new murmurs. Posterior tibial pulses plus one in the right leg. White count has come down 22729 hemoglobin 13.5 platelet count [id number]. Hemoglobin A1c of 7.4. 2D echocardiogram shows ejection fraction of 35-40%. There was grade 1 diastolic left ventricular dysfunction. Trace mitral regurgitation and no pericardial effusion. The patient continues on aspirin atorvastatin clopidogrel insulin scale metoprolol tartrate pantoprazole. Given the patient's LV dysfunction we will add Entresto to his regimen. He can be transferred out to telemetry. We will have him out of bed to chair and begin ambulation. We will plan on a follow up echo in 90 days and we will consider an outpatient Cardiolite stress test to determine whether or not into requires intervention in the circumflex artery. HORACIO SAMS MD February 19, 2025 06:58
[2025-02-19 07:33] LABS: CREATINE KINASE, TOTAL 2545 U/L (21-232)
[2025-02-19] MEDS: SACUBITRIL/VALSARTAN 1 EACH TABLET PO ONE (08:39)
--- NOTE | 2025-02-19 09:33 | PN ---
[facility] PROGRESS NOTE Date Patient Seen: February 19, 2025 Time of Visit: 09:33 Supervising Physician: Paulette Chen MD Primary Care Physician: Daniel Jesus MD Outpatient Specialists: Jerod Sanchez MD Inpatient Consults: DR Edin SIMPSON Attending: Veena Watson MD PROBLEM LIST: - acute inferior wall ST-elevation [place], POA -CAD status post drug-eluting stent in the mid RCA with residual 80% mid circumflex stenosis -leukocytosis -dyslipidemia -essential hypertension -hyperglycemia in the presence of type 2 diabetes mellitus -hypomagnesemia -transaminitis -suspected JAMES undiagnosed and untreated INTERVAL HISTORY: Per RN patient had no major overnight events. Patient is awake alert and oriented x3. He is hemodynamically stable. He is off any drips this morning. He continues with cardioprotective medication aspirin, Plavix, statin and beta- gregorio. Patient denies any chest pain, palpitations or shortness breath. Blood pressure this morning 133/75 heart rate in the 80s respiratory rate of 19 unlabored saturating 98% on room air and afebrile. Urine output 1.6 L with a balance of -567 mL. WBCs trending down as expected 15.9 H&H 13.7/38.7. Chemistries shows sodium of 131 potassium of 5.2 chloride of 97 glucose 180 mg/dL hemoglobin A1c 7.4. Chest x-ray shows clear lungs. Stable to downgrade to PCCU. REVIEW OF SYSTEMS: General: No malaise or fever. Neurological: No fainting episodes or seizures. HEENT: No nasal congestion or nasal secretion. Respiratory: No cough, shortness of breath, or wheezing Cardiac: No chest pain, shortness breath or palpitations. Gastrointestinal: No vomiting or diarrhea. Genitourinary: No dysuria hematuria. Skin: No rashes or lesions. Hematological: No bruises or bleeding. Musculoskeletal: No joint pains or arthralgias. Psychiatric: No depression or panic attacks. PHYSICAL EXAM: GENERAL: alert, weak, awake oriented x 3 HEENT: EOMI, Sclera non icteric, moist mucosa NECK: Supple, no JVD, trachea midline LUNGS: Clear breath sounds bilaterally. No wheezes HEART: Regular rate and rhythm. Normal S1 and S2, without murmurs ABD: Abdomen soft, nontender. Bowel sounds present EXT: No clubbing cyanosis or edema, bilateral pedal pulses 2+ NEURO: Alert and oriented to person, follows commands Vital Signs (last 8hr) Date Time Temp Pulse Resp B/P (MAP) Pulse Ox O2 Delivery O2 Flow Rate FiO2 02/19/25 06:00 98.1 72 17 99 02/19/25 05:44 76 36 116/63 99 Room Air 02/19/25 04:44 71 22 114/68 97 Room Air 02/19/25 04:19 97 Room Air* 0 21 02/19/25 03:44 73 21 128/79 97 Room Air 02/19/25 02:44 68 10 128/73 99 Room Air 02/19/25 01:44 72 15 106/59 97 Room Air LABS: Hematology Labs: Test 02/19/25 04:48 Range/Units White Blood Count 15.9 H 4.8-10.8 K/uL Red Blood Count 4.36 L 4.50-6.20 MIL/uL Hemoglobin 13.5 L 14.0-18.0 g/dL Hematocrit 38.7 L 42-54 % Mean Corpuscular Volume 88.8 79-99 fL Mean Corpuscular Hemoglobin 31.0 27.0-33.0 pg Mean Corpuscular Hemoglobin Concent 34.9 32.0-36.0 g/dL Red Cell Distribution Width 12.0 11.0-15.5 % Platelet Count 242 130-400 K/uL Mean Platelet Volume 8.4 7.5-10.5 fL Nucleated Red Blood Cells 0.0 0.0-0.19 % Chemistry Labs: Test 02/19/25 06:58 02/19/25 04:48 02/18/25 06:17 Range/Units Whole Blood Glucose 189 H 70-110 MG/DL Sodium Level 131 L 136-145 mmol/L Potassium Level 5.2 H 3.5-5.1 mmol/L Chloride Level 97 L 101-111 mmol/L Carbon Dioxide Level 28 21-32 mmol/L Blood Urea Nitrogen 15 7-18 mg/dL Creatinine 1.1 0.5-1.3 mg/dL Glomerular Filtration Rate Calc 78 >90 mL/min Random Glucose 183 H 70-105 mg/dL Hemoglobin A1c 7.4 H 4.0-6.0 % Estimated Average Glucose (eAG) 166 H 70-126 mg/dL Total Calcium 9.0 8.5-10.1 mg/dL Total Creatine Kinase 2545 #*H 21-232 U/L Troponin I High Sensitivity > 289309 *H 4-75 ng/L Triglycerides Level 71 30-200 mg/dL Cholesterol Level 110 <200 mg/dL LDL Cholesterol 55 0-99 mg/dL HDL Cholesterol 50 29-71 mg/dL Thyroid Stimulating Hormone (TSH) 2.52 0.36-3.74 uIU/mL Phosphorus Level 4.1 2.5-4.9 mg/dL Magnesium Level 1.70 L 1.80-2.40 mg/dL Total Bilirubin 0.6 # 0.2-1.0 mg/dL Aspartate Amino Transf (AST/SGOT) 258 H 10-37 U/L Alanine Aminotransferase (ALT/SGPT) 58 # 12-78 U/L Alkaline Phosphatase 44 L 50-136 U/L Total Protein 7.2 6.0-8.3 g/dL Albumin 3.8 3.5-5.0 g/dL Coagulation Labs: Test 02/18/25 14:15 02/18/25 11:02 02/18/25 06:17 Range/Units Activated Clotting Time > 400 H 100-180 SEC Activated Partial Thromboplast Time 30.1 # 26.3-35.5 SEC Prothrombin Time 11.1 9.6-11.6 SEC Prothromb Time International Ratio 1.05 0.85-1.15 DIAGNOSTICS / RADIOLOGY RESULTS: [ ] IMAGING REPORT Signed PATIENT: DARREL PEARSON MR#: [id number] : 1965 SEX: M AGE: 59 LOCATION: [facility] ORDER [id number] STATUS: ADM IN REPORT#: [id number] SERVICE [id number] REASON: hypoxic resp failure / and post heart ctah ORDERING PHYSICIAN: JONI PAN PROCEDURE: CXR1VW - CHEST 1VW Exam Type: CHEST 1VW Clinical Information: hypoxic resp failure / and post heart ctah Comparison: None Findings: The lungs are clear of infiltrates. The heart is normal in size. The bony and soft tissue structures of the chest are unremarkable. Impression: Clear lungs. DICTATED BY: TANESHA MARTÍNEZ MD DATE: 02/18/25 1330 ELECTRONICALLY SIGNED BY: TANESHA MARTÍNEZ MD DATE: 02/18/25 1558 PLAN May downgrade to PCCU. Continuous telemetry monitoring Follow cardiology recommendations 2D echocardiogram done follow results Patient to continue heparin and Integrilin drip per Cardiology recommendations PPI for risk of bleeding Statin therapy Glucose goal less than 180 mg/dL DAPT with Plavix and aspirin has been started per Cardiology, beta gregorio, statin therapy Consider referral to cardiac rehab once ready for discharge NEURO: Minimize central acting medications as possible. Fall Precautions. Well lighted room through the day and minimize interruptions through the night to prevent acute delirium. PULMONARY: Supplemental 02 as needed Titrate Fio2 to keep Spo2 > or = 90% DuoNeb�s and CPT as needed IS hourly while awake for pulmonary hygiene Out of bed to chair as tolerated CARDIOVASCULAR: Follow hemodynamics. Titrate vasopressor to keep MAP >65 or systolic blood pressure >95mmHg Drips: Interrogation Heparin LINES: PIV Right femoral sheath GI & NUTRITION: Continue nutritional support Aspirations precautions Prokinetic agents and laxatives as needed Start clear liquid diet KIDNEYS & ELECTROLYTES: Strict monitoring of intake and output Daily weights Avoid nephrotoxic agents Monitor electrolytes and replace as needed Goal urine output of 30mL/hr or 0.5mL/kg/hr Urine output: [ ] Fluid Balance: [ ] ENDOCRINE: Maintain blood glucose between 100-180 at all times. Insulin sliding scale for blood glucose management INFECTIOUS DISEASE: Trend temperature. Rapp-culture if febrile. Micro: [ ] Antibiotics: [ ] None HEMATOLOGY & COAGULATION: Monitor H&H. Keep Hgb > 7 Transfuse 1 unit of PRBC for Hgb < 7 Transfuse 1 pack of platelets of platelets < 20, 000 Watch for any signs and symptoms of bleeding SKIN: Pressure ulcer prevention per facility protocol Rehab: PT/OT Prophylaxis: GI: Protonix DVT: Lovenox Code Status: Full Resuscitation Disposition: Downgrade to PCCU Other: Total patient care time exceeds 35 minutes excluding all procedures. Case was discussed and seen with my supervising physician. The above plan was formulated and agreed upon. ATTESTATION BY PHYSICIAN I reviewed the documentation, medical decision making, and treatment plan as noted by the mid-level provider above. I agree with the findings and plan of care. Eagle Chen MD, NELLY J ARNP February 19, 2025 09:33
--- NOTE | 2025-02-19 09:44 | PN ---
[facility] PROGRESS NOTE Date of Service: February 19, 2025 Time of Service: 09:39 SUBJECTIVE: [ ] Patient seen and examined at bedside, case discussed with RN, no acute events overnight, during my visit the patient is alert oriented x3, hemodynamically stable, denies any chest pain, no shortness a breath, nausea, no vomiting. REVIEW OF SYSTEMS a 14 point ROS obtained all relevant positive documented otherwise ROS negative. PHYSICAL EXAM GENERAL APPEARANCE: The patient is awake, alert, and oriented, in no acute cardiopulmonary distress. NEUROLOGICAL: Cranial nerves II-XII grossly intact. Motor is 5/5 in bilateral upper and lower extremities proximal to distal. No sensory deficits. HEENT: Face is symmetric. Pupils are equal and reactive. Extraocular movements are intact. NECK: Supple. No JVD. No thyromegaly. No submental, submandibular, pre- /postauricular, occipital or supraclavicular lymphadenopathy. CHEST: Normal chest expansion. No Telemetry. LUNGS: Absence of any rales, rhonchi or any wheezing. CARDIOVASCULAR: Regular. S1 and S2 normal. No appreciable rubs, murmurs or ga llops. ABDOMEN: Soft, nontender, and nondistended. There is no rebound, voluntary guarding, or rigidity. : Deferred. No Reeves. EXTREMITIES: Non-edematous and not cyanotic. No clubbing. Good capillary refill. SKIN: No skin breakdown. Vital Signs (last 8hr) Date Time Temp Pulse Resp B/P (MAP) Pulse Ox O2 Delivery O2 Flow Rate FiO2 02/19/25 06:00 98.1 72 17 99 02/19/25 05:44 76 36 116/63 99 Room Air 02/19/25 04:44 71 22 114/68 97 Room Air 02/19/25 04:19 97 Room Air* 0 21 02/19/25 03:44 73 21 128/79 97 Room Air 02/19/25 02:44 68 10 128/73 99 Room Air 02/19/25 01:44 72 15 106/59 97 Room Air LABS: Laboratory: Test 02/19/25 06:58 02/19/25 04:48 02/18/25 14:15 02/18/25 11:02 Range/Units Whole Blood Glucose 189 H 70-110 MG/DL White Blood Count 15.9 H 4.8-10.8 K/uL Red Blood Count 4.36 L 4.50-6.20 MIL/uL Hemoglobin 13.5 L 14.0-18.0 g/dL Hematocrit 38.7 L 42-54 % Mean Corpuscular Volume 88.8 79-99 fL Mean Corpuscular Hemoglobin 31.0 27.0-33.0 pg Mean Corpuscular Hemoglobin Concent 34.9 32.0-36.0 g/dL Red Cell Distribution Width 12.0 11.0-15.5 % Platelet Count 242 130-400 K/uL Mean Platelet Volume 8.4 7.5-10.5 fL Nucleated Red Blood Cells 0.0 0.0-0.19 % Sodium Level 131 L 136-145 mmol/L Potassium Level 5.2 H 3.5-5.1 mmol/L Chloride Level 97 L 101-111 mmol/L Carbon Dioxide Level 28 21-32 mmol/L Blood Urea Nitrogen 15 7-18 mg/dL Creatinine 1.1 0.5-1.3 mg/dL Glomerular Filtration Rate Calc 78 >90 mL/min Random Glucose 183 H 70-105 mg/dL Hemoglobin A1c 7.4 H 4.0-6.0 % Estimated Average Glucose (eAG) 166 H 70-126 mg/dL Total Calcium 9.0 8.5-10.1 mg/dL Total Creatine Kinase 2545 #*H 21-232 U/L Troponin I High Sensitivity > 441494 *H 4-75 ng/L Triglycerides Level 71 30-200 mg/dL Cholesterol Level 110 <200 mg/dL LDL Cholesterol 55 0-99 mg/dL HDL Cholesterol 50 29-71 mg/dL Thyroid Stimulating Hormone (TSH) 2.52 0.36-3.74 uIU/mL Activated Clotting Time > 400 H 100-180 SEC Activated Partial Thromboplast Time 30.1 # 26.3-35.5 SEC Test 02/18/25 06:17 Range/Units Prothrombin Time 11.1 9.6-11.6 SEC Prothromb Time International Ratio 1.05 0.85-1.15 Phosphorus Level 4.1 2.5-4.9 mg/dL Magnesium Level 1.70 L 1.80-2.40 mg/dL Total Bilirubin 0.6 # 0.2-1.0 mg/dL Aspartate Amino Transf (AST/SGOT) 258 H 10-37 U/L Alanine Aminotransferase (ALT/SGPT) 58 # 12-78 U/L Alkaline Phosphatase 44 L 50-136 U/L Total Protein 7.2 6.0-8.3 g/dL Albumin 3.8 3.5-5.0 g/dL Current Medications Medications (Trade) Dose Ordered Sig/Arash Route PRN Reason Start Time Stop Time Status Last Admin Dose Admin Acetaminophen/ Codeine Phosphate (TYLenol-coDEINE TAB) 1 tab Q4H PRN PO MILD PAIN (1-3) 02/18/25 03:30 03/20/25 03:29 02/18/25 14:41 1 TAB Acetaminophen/ Codeine Phosphate (TYLenol-coDEINE TAB) 2 tab Q4H PRN PO MOD/SEVERE PAIN LEVEL 4 TO 10 02/18/25 03:30 03/20/25 03:29 02/19/25 08:40 2 TAB Aspirin (Aspirin 81mg Chew Tab) 81 mg DAILY PO 02/18/25 09:00 03/20/25 08:59 02/19/25 08:40 81 MG Atorvastatin Calcium (LIPItor 40MG) 40 mg HS PO 02/18/25 21:00 03/20/25 20:59 02/18/25 20:12 40 MG Clopidogrel Bisulfate (plaVIX 75MG) 75 mg DAILY PO 02/18/25 09:00 03/20/25 08:59 02/19/25 08:40 75 MG Dextrose (D50w) 50 ml AD PRN IV HYPOGLYCEMIA PROTOCOL 02/18/25 04:00 03/20/25 03:59 Eptifibatide 100 ml @ 0 mls/hr PROTOCOL IV 02/18/25 03:30 02/18/25 09:00 DC Famotidine (Pepcid 20mg Vial) 20 mg BID IV 02/18/25 21:00 02/18/25 11:02 DC Glucagon (Glucagon 1mg Kit) 1 mg AD PRN IM HYPOGLYCEMIA PROTOCOL 02/18/25 04:00 03/20/25 03:59 Heparin Sodium (Porcine) (HEParin 5,000 UNIT VIAL) *calculation based on ACTUAL B... AD PRN IV HEPARIN PROTOCOL 02/18/25 04:30 02/18/25 09:00 DC Heparin Sodium/ Dextrose 250 ml @ 0 mls/hr Q6H IV 02/18/25 04:30 02/18/25 09:00 DC 02/18/25 04:59 18.53 MLS/HR Insulin Human Regular (humuLIN R 100 UNIT/ML 3ML) INSULIN SLIDING SCAL... ACHS SQ 02/18/25 07:30 03/20/25 07:29 02/19/25 07:01 2 UNIT Metoprolol Tartrate (loprESSOR) 12.5 mg BID PO 02/18/25 09:00 03/20/25 08:59 02/19/25 08:41 12.5 MG Morphine Sulfate (morPHINE 5MG VIAL) 3 mg ONCALL IVP 02/18/25 03:30 02/18/25 04:40 DC Nitroglycerin/ Dextrose 0 ml @ 0 mls/hr PROTOCOL PRN IV [id number] ORDERS 02/18/25 03:30 02/18/25 07:12 DC 02/18/25 05:45 1.5 MLS/HR Ondansetron HCl (zoFRAN 4MG INJ) 4 mg ONCALL IVP 02/18/25 03:30 02/18/25 04:40 DC Ondansetron HCl (zoFRAN 4MG INJ) 4 mg Q4H PRN IVP NAUSEA/VOMITING 02/18/25 03:30 03/20/25 03:29 Pantoprazole Sodium (PROTonix 40MG TAB) 40 mg DAILY PO 02/18/25 09:00 03/20/25 08:59 02/19/25 08:40 40 MG Temazepam (restORIL 30 MG CAP) 30 mg HS PRN PO INSOMNIA/SLEEP 02/18/25 03:30 02/25/25 03:29 DIAGNOSTICS / RADIOLOGY: [ ] ASSESSMENT: acute inferior STEMI POA DM type II Essential HTN Hyperlipidemia obesity: BMI 32.5 active smoker POA ETOH use POA PLAN: Patient to be downgraded to the PCU Status post left heart catheterization status post drug-eluting stent in the mid RCA with residual 80% mid circumflex stenosis. Cardiology input noted and appreciated, agreed with the patient's LV dysfunction we will add Entresto to the current regimen. Patient can be transferred out to telemetry, patient we will be out of bed to chair, begin ambulation. Plan and follow up echo in 90 days and consider outpatient Cardiolite stress test to determine whether or not a requires intervention in the circumflex artery. NEURO: Minimize central acting medications as possible. Fall Precautions. Well lighted room through the day and minimize interruptions through the night to prevent acute delirium. PULMONARY: Supplemental 02 as needed BiPAP as necessary, for respiratory distress Titrate Fio2 to keep Spo2 > or = 90% DuoNeb�s and CPT as needed IS hourly while awake for pulmonary hygiene prn Out of bed to chair as tolerated Maintain aspiration precautions at all times CARDIOVASCULAR: Follow hemodynamics. Vital signs per facility protocol GI & NUTRITION: Continue nutritional support Aspirations precautions Prokinetic agents and laxatives as needed KIDNEYS & ELECTROLYTES: Strict monitoring of intake and output Daily weights Avoid nephrotoxic agents Monitor electrolytes and replace as needed Goal urine output of 30mL/hr or 0.5mL/kg/hr Medications to be dosed according to renal function. Avoid contrast if possible ENDOCRINE: Maintain blood glucose between 100-180 at all times. Insulin sliding scale for blood glucose management Hypoglycemia and hyperglycemia protocol in place INFECTIOUS DISEASE: Trend temperature, WBC and procalcitonin level Follow cultures, deescalate antibiotics as soon as possible. Panculture if new onset fever HEMATOLOGY & COAGULATION: Monitor H&H. Keep Hgb > 7 Transfuse 1 unit of PRBC for Hgb < 7 Transfuse 1 pack of platelets of platelets < 20, 000 Watch for any signs and symptoms of bleeding SKIN: Pressure ulcer prevention per facility protocol Specialty mattress as needed ORTHO/REHAB Continue PT/OT PRN: MEDICATIONS Tylenol 650 mg po every 4 hrs for fever zofran 4 mg IV every 6 hrs for n/v Hydralazine 5 mg IV every 4 hrs systolic pressure > 160 bowel regiment: lactulose 20 gm PO BID PRN constipation Supportive measures: Continue GI and DVT prophylaxis Disposition: Patient to be downgraded to PCU All questions answered time spent: > 35 min CORTEZ GALVAN MD February 19, 2025 09:44
--- NOTE | 2025-02-19 11:37 | EKG ---
[facility] Test Date: 2025-02-19 Test Time: 11:37:00 Pat Name: DARREL PAERSON Department: [facility] Room: 206 1 Gender: M Faculty Research Physician: MARILU MIRELES : 1965 Requested By: HORACIO SAMS Order Number: [id number] Reading MD: Sung Blankenship Measurements Intervals Homer Rate: 71 P: 46 PA: 188 QRS: -42 QRSD: 92 T: -35 QT: 372 QTc: 404 Interpretive Statements Normal sinus rhythm Left axis deviation Low voltage QRS Inferiorlateral infarct , age undetermined ST & T wave abnormality, consider lateral ischemia Compared to ECG 02/18/2025 14:48:11 Left-axis deviation now present Low QRS voltage now present ST (T wave) deviation now present Possible ischemia now present Myocardial infarct finding still present Electronically Signed On 02-19-2025 21:33:50 CDT by Sung Blankenship Please click the below link to view image of tracing.
[2025-02-20] VITALS (11 sets, daily range): BP systolic 96–122; BP diastolic 53–79; PULSE 70–82; RESP 16–22; TEMP 98.6–100.3; O2SAT 97–98
[2025-02-20 04:43] LABS: HEMATOCRIT 35.7 % (42-54); MEAN CORPUSCULAR HEMOGLOBIN 30.4 pg (27.0-33.0); MEAN CORPUSCULAR HGB CONC 34.2 g/dL (32.0-36.0); RED BLOOD CELL COUNT(AUTO) 4.01 MIL/uL (4.50-6.20); RED CELL DISTRIBUTION WIDTH 11.9 % (11.0-15.5); WHITE BLOOD COUNT (AUTO) 16.1 K/uL (4.8-10.8)
[2025-02-20 04:59] LABS: ALBUMIN 3.3 g/dL (3.5-5.0); BILIRUBIN,TOTAL 0.7 mg/dL (0.2-1.0); CREATININE 1.2 mg/dL (0.5-1.3); MAGNESIUM 2.5 mg/dL (1.80-2.40)
--- NOTE | 2025-02-20 06:54 | PN ---
[facility] Cardiology Progress Note CARDIOLOGY PROGRESS NOTE FEBRUARY 20, 2025 Problems: 1. Acute inferior wall ST-elevation AR 2. CAD status post drug-eluting stent in the mid RCA with residual 80% mid circumflex stenosis with LV ejection fraction of 35-40% post AR 3. Dyslipidemia 4. Hypertension 5. Diabetes mellitus type 2 Blood pressure is running 95-110 systolic heart rate has been in the 70s the patient is [place]febrile. [place] [address] hemoglobin 12.2 platelet count 155674. Potassium 4.0 BUN 16 creatinine 1.2 estimated GFR of 70. The patient continues on aspirin atorvastatin clopidogrel Lovenox metoprolol tartrate pantoprazole. Entresto was ordered yesterday. Currently the patient denies any chest pain or shortness of breath. No new murmurs are present and lungs are clear. He has had a low-grade temperature of 100.2 last night. Denies any fever chills. He has had no cough or dysuria or diarrhea. We will check some cultures and urinalysis prior to discharge. HORACIO SAMS MD February 20, 2025 06:54
[2025-02-20] MEDS: ENOXAPARIN SODIUM 30 MG/0.3 ML SQ SCH (08:27)
[2025-02-20 08:51] LABS: APPEARANCE,URINE CLEAR (CLEAR); BILIRUBIN,URINE NEGATIVE (NEGATIVE); COLOR,URINE YELLOW (YELLOW); GLUCOSE, URINE (UA) 500 mg/dL (NEGATIVE); KETONES,URINE 20 mg/dL (NEGATIVE); LEUKOCYTE ESTERASE ,URINE NEGATIVE Leu/uL (NEGATIVE); NITRATE,URINE NEGATIVE (NEGATIVE); PH,URINE 5.5 (5.0-8.0); PROTEIN,URINE 20 mg/dL (NEGATIVE); UROBILINOGEN,URINE 0.2 mg/dL (0.2-1.0)
[2025-02-20 08:55] LABS: ADD UA MICROSCOPIC YES; BACTERIA,URINE None Seen /HPF (None Seen); RBC,URINE 0-1 /HPF (0-1); WBC,URINE 0-1 /HPF (0-1)
[2025-02-20 08:56] LABS: MUCUS,URINE Rare LPF (None Seen)
--- NOTE | 2025-02-20 09:17 | PN ---
[facility] PROGRESS NOTE Date of Service: February 20, 2025 Time of Service: 09:13 SUBJECTIVE: [ ] This is a 59-year-old male that was transferred from [facility] with a in acute inferior STEMI went straight to left heart catheterization. Patient reports his chief complaint was chest pain. Onset patient reported he was awakened at 1:00 a.m. this morning. State 10/10 on pain scale. Radiate to bilateral upper arm. Aggravating factors deep breath, alleviating factors none. Associated symptoms shortness a breath, diaphoretic, GI symptoms. Patient went straight to ER for further evaluation and treatment. Patient reports smoking tobacco products cigarettes one pack every two weeks. Drinks beer on [id number] pack. Patient is seen in room 206 left heart catheterization status post drug-eluting stent in the mid RCA with residual 80% mid circumflex stenosis Patient is fully awake alert oriented x3. right groin no numbness no tingling, the patient is chest pain free now. 02/20 patient is seen and examined earlier this morning at bedside, patient had slight temperature 100.2� last night, he remains hemodynamically stable, saturat ing normal on room air, alert oriented x3, he denies dizziness, no blurry vision, no headache, no cough, denies shortness a breath, no chest pain, no nausea, no vomiting, no abdominal pain, no diarrhea, no dysuria. To have mild leukocytosis, with a a WBC of 16.1, hemoglobin 12.2, hematocrit 35.7. Chest x- ray currently pending REVIEW OF SYSTEMS a 14 point ROS obtained all relevant positive documented otherwise ROS negative. PHYSICAL EXAM GENERAL APPEARANCE: The patient is awake, alert, and oriented, in no acute cardiopulmonary distress. NEUROLOGICAL: Cranial nerves II-XII grossly intact. Motor is 5/5 in bilateral upper and lower extremities proximal to distal. No sensory deficits. HEENT: Face is symmetric. Pupils are equal and reactive. Extraocular movements are intact. NECK: Supple. No JVD. No thyromegaly. No submental, submandibular, pre- /postauricular, occipital or supraclavicular lymphadenopathy. CHEST: Normal chest expansion. No Telemetry. LUNGS: Absence of any rales, rhonchi or any wheezing. CARDIOVASCULAR: Regular. S1 and S2 normal. No appreciable rubs, murmurs or gallops. ABDOMEN: Soft, nontender, and nondistended. There is no rebound, voluntary guarding, or rigidity. : Deferred. No Reeves. EXTREMITIES: Non-edematous and not cyanotic. No clubbing. Good capillary refill. SKIN: No skin breakdown. Vital Signs (last 8hr) Date Time Temp Pulse Resp B/P (MAP) Pulse Ox O2 Delivery O2 Flow Rate FiO2 02/20/25 03:45 97 Room Air* 0 21 02/20/25 03:44 98.6 70 16 96/53 Room Air 02/20/25 01:44 76 20 106/62 Room Air LABS: Laboratory: Test 02/20/25 08:40 02/20/25 06:38 02/20/25 03:47 02/19/25 04:48 Range/Units Urine Color YELLOW YELLOW Urine Appearance CLEAR CLEAR Urine pH 5.5 5.0-8.0 Urine Specific Equality 1.028 1.001-1.031 Urine Protein 20 H NEGATIVE mg/dL Urine Glucose (UA) 500 H NEGATIVE mg/dL Urine Ketones 20 H NEGATIVE mg/dL Urine Occult Blood +- (TRACE) H NEGATIVE Urine Nitrate NEGATIVE NEGATIVE Urine Bilirubin NEGATIVE NEGATIVE mg/dL Urine Urobilinogen 0.2 0.2-1.0 mg/dL Urine Leukocyte Esterase NEGATIVE NEGATIVE Brandon/uL Urine RBC 0-1 0-1 /HPF Urine WBC 0-1 0-1 /HPF Urine Bacteria None Seen None Seen /HPF Whole Blood Glucose 129 H 70-110 MG/DL White Blood Count 16.1 H 4.8-10.8 K/uL Red Blood Count 4.01 L 4.50-6.20 MIL/uL Hemoglobin 12.2 L 14.0-18.0 g/dL Hematocrit 35.7 L 42-54 % Mean Corpuscular Volume 89.0 79-99 fL Mean Corpuscular Hemoglobin 30.4 27.0-33.0 pg Mean Corpuscular Hemoglobin Concent 34.2 32.0-36.0 g/dL Red Cell Distribution Width 11.9 11.0-15.5 % Platelet Count 204 130-400 K/uL Mean Platelet Volume 8.6 7.5-10.5 fL Nucleated Red Blood Cells 0.0 0.0-0.19 % Sodium Level 131 L 136-145 mmol/L Potassium Level 4.0 3.5-5.1 mmol/L Chloride Level 95 L 101-111 mmol/L Carbon Dioxide Level 29 21-32 mmol/L Blood Urea Nitrogen 16 7-18 mg/dL Creatinine 1.2 0.5-1.3 mg/dL Glomerular Filtration Rate Calc 70 >90 mL/min Random Glucose 147 H 70-105 mg/dL Total Calcium 8.6 8.5-10.1 mg/dL Magnesium Level 2.50 H 1.80-2.40 mg/dL Total Bilirubin 0.7 0.2-1.0 mg/dL Aspartate Amino Transf (AST/SGOT) 191 H 10-37 U/L Alanine Aminotransferase (ALT/SGPT) 58 12-78 U/L Alkaline Phosphatase 37 L 50-136 U/L Total Protein 7.0 6.0-8.3 g/dL Albumin 3.3 L 3.5-5.0 g/dL Hemoglobin A1c 7.4 H 4.0-6.0 % Estimated Average Glucose (eAG) 166 H 70-126 mg/dL Total Creatine Kinase 2545 #*H 21-232 U/L Troponin I High Sensitivity > 196651 *H 4-75 ng/L Triglycerides Level 71 30-200 mg/dL Cholesterol Level 110 <200 mg/dL LDL Cholesterol 55 0-99 mg/dL HDL Cholesterol 50 29-71 mg/dL Thyroid Stimulating Hormone (TSH) 2.52 0.36-3.74 uIU/mL Test 02/18/25 14:15 02/18/25 11:02 Range/Units Activated Clotting Time > 400 H 100-180 SEC Activated Partial Thromboplast Time 30.1 # 26.3-35.5 SEC Current Medications Medications (Trade) Dose Ordered Sig/Arash Route PRN Reason Start Time Stop Time Status Last Admin Dose Admin Acetaminophen/ Codeine Phosphate (TYLenol-coDEINE TAB) 1 tab Q4H PRN PO MILD PAIN (1-3) 02/18/25 03:30 03/20/25 03:29 02/18/25 14:41 1 TAB Acetaminophen/ Codeine Phosphate (TYLenol-coDEINE TAB) 2 tab Q4H PRN PO MOD/SEVERE PAIN LEVEL 4 TO 10 02/18/25 03:30 03/20/25 03:29 02/19/25 23:49 2 TAB Aspirin (Aspirin 81mg Chew Tab) 81 mg DAILY PO 02/18/25 09:00 03/20/25 08:59 02/20/25 08:28 81 MG Atorvastatin Calcium (LIPItor 40MG) 40 mg HS PO 02/18/25 21:00 03/20/25 20:59 02/19/25 20:00 40 MG Clopidogrel Bisulfate (plaVIX 75MG) 75 mg DAILY PO 02/18/25 09:00 03/20/25 08:59 02/20/25 08:27 75 MG Dextrose (D50w) 50 ml AD PRN IV HYPOGLYCEMIA PROTOCOL 02/18/25 04:00 03/20/25 03:59 Enoxaparin Sodium (Lovenox) 30 mg DAILY SQ 02/20/25 09:00 03/22/25 08:59 02/20/25 08:27 30 MG Eptifibatide 100 ml @ 0 mls/hr PROTOCOL IV 02/18/25 03:30 02/18/25 09:00 DC Famotidine (Pepcid 20mg Vial) 20 mg BID IV 02/18/25 21:00 02/18/25 11:02 DC Glucagon (Glucagon 1mg Kit) 1 mg AD PRN IM HYPOGLYCEMIA PROTOCOL 02/18/25 04:00 03/20/25 03:59 Heparin Sodium (Porcine) (HEParin 5,000 UNIT VIAL) *calculation based on ACTUAL B... AD PRN IV HEPARIN PROTOCOL 02/18/25 04:30 02/18/25 09:00 DC Heparin Sodium/ Dextrose 250 ml @ 0 mls/hr Q6H IV 02/18/25 04:30 02/18/25 09:00 DC 02/18/25 04:59 18.53 MLS/HR Insulin Human Regular (humuLIN R 100 UNIT/ML 3ML) INSULIN SLIDING SCAL... ACHS SQ 02/18/25 07:30 03/20/25 07:29 02/19/25 20:04 3 UNIT Metoprolol Tartrate (loprESSOR) 12.5 mg BID PO 02/18/25 09:00 03/20/25 08:59 02/20/25 08:28 12.5 MG Morphine Sulfate (morPHINE 5MG VIAL) 3 mg ONCALL IVP 02/18/25 03:30 02/18/25 04:40 DC Nitroglycerin/ Dextrose 0 ml @ 0 mls/hr PROTOCOL PRN IV [id number] ORDERS 02/18/25 03:30 02/18/25 07:12 DC 02/18/25 05:45 1.5 MLS/HR Ondansetron HCl (zoFRAN 4MG INJ) 4 mg ONCALL IVP 02/18/25 03:30 02/18/25 04:40 DC Ondansetron HCl (zoFRAN 4MG INJ) 4 mg Q4H PRN IVP NAUSEA/VOMITING 02/18/25 03:30 03/20/25 03:29 Pantoprazole Sodium (PROTonix 40MG TAB) 40 mg DAILY PO 02/18/25 09:00 03/20/25 08:59 02/20/25 08:28 40 MG Temazepam (restORIL 30 MG CAP) 30 mg HS PRN PO INSOMNIA/SLEEP 02/18/25 03:30 02/25/25 03:29 DIAGNOSTICS / RADIOLOGY: [ ] ASSESSMENT: acute inferior STEMI POA DM type II Essential HTN Hyperlipidemia obesity: BMI 32.5 active smoker POA ETOH use POA PLAN: Patient to be downgraded to the PCU Patient had a temperature 100.2� last night, we will do serology test to include influenza, SARS antigen, rapid strep, follow chest x-ray today. Start the patient on empiric Rocephin 1 g IV daily and azithromycin 500 mg IV daily. Order UA and urine culture, two sets of blood cultures. Continue to monitor WBC in a.m. Status post left heart catheterization status post drug-eluting stent in the mid RCA with residual 80% mid circumflex stenosis. Cardiology input noted and appreciated, continue the patient on atorvastatin 40 mg p.o. at bedtime, metoprolol tartrate 12.5 mg p.o. b.i.d., Plavix 75 mg p.o. daily and aspirin 81 mg p.o. daily. Follow up echo in 90 days and consider outpatient Cardiolite stress test to determine whether or not a requires intervention in the circumflex artery. NEURO: Minimize central acting medications as possible. Fall Precautions. Well lighted room through the day and minimize interruptions through the night to prevent acute delirium. PULMONARY: Supplemental 02 as needed BiPAP as necessary, for respiratory distress Titrate Fio2 to keep Spo2 > or = 90% DuoNeb�s and CPT as needed IS hourly while awake for pulmonary hygiene prn Out of bed to chair as tolerated Maintain aspiration precautions at all times CARDIOVASCULAR: Follow hemodynamics. Vital signs per facility protocol GI & NUTRITION: Continue nutritional support Aspirations precautions Prokinetic agents and laxatives as needed KIDNEYS & ELECTROLYTES: Strict monitoring of intake and output Daily weights Avoid nephrotoxic agents Monitor electrolytes and replace as needed Goal urine output of 30mL/hr or 0.5mL/kg/hr Medications to be dosed according to renal function. Avoid contrast if possible ENDOCRINE: Maintain blood glucose between 100-180 at all times. Insulin sliding scale for blood glucose management Hypoglycemia and hyperglycemia protocol in place INFECTIOUS DISEASE: Trend temperature, WBC and procalcitonin level Follow cultures, deescalate antibiotics as soon as possible. Panculture if new onset fever HEMATOLOGY & COAGULATION: Monitor H&H. Keep Hgb > 7 Transfuse 1 unit of PRBC for Hgb < 7 Transfuse 1 pack of platelets of platelets < 20, 000 Watch for any signs and symptoms of bleeding SKIN: Pressure ulcer prevention per facility protocol Specialty mattress as needed ORTHO/REHAB Continue PT/OT PRN: MEDICATIONS Tylenol 650 mg po every 4 hrs for fever zofran 4 mg IV every 6 hrs for n/v Hydralazine 5 mg IV every 4 hrs systolic pressure > 160 bowel regiment: lactulose 20 gm PO BID PRN constipation Supportive measures: Continue GI and DVT prophylaxis Disposition: Patient to be downgraded to PCU All questions answered time spent: > 35 min CORTEZ GALVAN MD February 20, 2025 09:17
--- NOTE | 2025-02-20 09:38 | HMCIMG ---
Exam Type: CHEST 1VW Clinical Information: Fever Comparison: None Findings: The lungs are clear of infiltrates. The heart is normal in size. The bony and soft tissue structures of the chest are unremarkable. Impression: Clear lungs.
--- NOTE | 2025-02-20 10:01 | PN ---
[facility] PROGRESS NOTE Date Patient Seen: February 20, 2025 Time of Visit: 09:58 Supervising Physician: Star Chaves MD Primary Care Physician: Daniel Jesus MD Outpatient Specialists: Jerod Sanchez MD Inpatient Consults: DR Edin SIMPSON Attending: Veena Watson MD PROBLEM LIST: - acute inferior wall ST-elevation [place], POA -CAD status post drug-eluting stent in the mid RCA with residual 80% mid circumflex stenosis -leukocytosis -dyslipidemia -essential hypertension -hyperglycemia in the presence of type 2 diabetes mellitus -hypomagnesemia -transaminitis -suspected JAMES undiagnosed and untreated INTERVAL HISTORY: Per nine patient had a low-grade fever 100.2 F. he was started on Zosyn and doxycycline per primary team. Patient denies any cough chills nausea vomiting or dysuria. He does report a fever overnight. Otherwise no complaints. He is hemodynamically stable saturating 98% on room air. Per COVID and flu. Patient to work with the IS Q 1 hour. REVIEW OF SYSTEMS: General: No malaise or fever. Neurological: No fainting episodes or seizures. HEENT: No nasal congestion or nasal secretion. Respiratory: No cough, shortness of breath, or wheezing Cardiac: No chest pain, shortness breath or palpitations. Gastrointestinal: No vomiting or diarrhea. Genitourinary: No dysuria hematuria. Skin: No rashes or lesions. Hematological: No bruises or bleeding. Musculoskeletal: No joint pains or arthralgias. Psychiatric: No depression or panic attacks. PHYSICAL EXAM: GENERAL: alert, weak, awake oriented x 3 HEENT: EOMI, Sclera non icteric, moist mucosa NECK: Supple, no JVD, trachea midline LUNGS: Clear breath sounds bilaterally. No wheezes HEART: Regular rate and rhythm. Normal S1 and S2, without murmurs ABD: Abdomen soft, nontender. Bowel sounds present EXT: No clubbing cyanosis or edema, bilateral pedal pulses 2+ NEURO: Alert and oriented to person, follows commands Vital Signs (last 8hr) Date Time Temp Pulse Resp B/P (MAP) Pulse Ox O2 Delivery O2 Flow Rate FiO2 02/20/25 09:33 98 Room Air* 0 21 02/20/25 07:14 98.8 80 19 122/75 94 Room Air 02/20/25 03:45 97 Room Air* 0 02/20/25 03:44 98.6 70 16 96/53 Room Air LABS: Hematology Labs: Test 02/20/25 03:47 Range/Units White Blood Count 16.1 H 4.8-10.8 K/uL Red Blood Count 4.01 L 4.50-6.20 MIL/uL Hemoglobin 12.2 L 14.0-18.0 g/dL Hematocrit 35.7 L 42-54 % Mean Corpuscular Volume 89.0 79-99 fL Mean Corpuscular Hemoglobin 30.4 27.0-33.0 pg Mean Corpuscular Hemoglobin Concent 34.2 32.0-36.0 g/dL Red Cell Distribution Width 11.9 11.0-15.5 % Platelet Count 204 130-400 K/uL Mean Platelet Volume 8.6 7.5-10.5 fL Nucleated Red Blood Cells 0.0 0.0-0.19 % Chemistry Labs: Test 02/20/25 06:38 02/20/25 03:47 02/19/25 04:48 Range/Units Whole Blood Glucose 129 H 70-110 MG/DL Sodium Level 131 L 136-145 mmol/L Potassium Level 4.0 3.5-5.1 mmol/L Chloride Level 95 L 101-111 mmol/L Carbon Dioxide Level 29 21-32 mmol/L Blood Urea Nitrogen 16 7-18 mg/dL Creatinine 1.2 0.5-1.3 mg/dL Glomerular Filtration Rate Calc 70 >90 mL/min Random Glucose 147 H 70-105 mg/dL Total Calcium 8.6 8.5-10.1 mg/dL Magnesium Level 2.50 H 1.80-2.40 mg/dL Total Bilirubin 0.7 0.2-1.0 mg/dL Aspartate Amino Transf (AST/SGOT) 191 H 10-37 U/L Alanine Aminotransferase (ALT/SGPT) 58 12-78 U/L Alkaline Phosphatase 37 L 50-136 U/L Total Protein 7.0 6.0-8.3 g/dL Albumin 3.3 L 3.5-5.0 g/dL Hemoglobin A1c 7.4 H 4.0-6.0 % Estimated Average Glucose (eAG) 166 H 70-126 mg/dL Total Creatine Kinase 2545 #*H 21-232 U/L Troponin I High Sensitivity > 333757 *H 4-75 ng/L Triglycerides Level 71 30-200 mg/dL Cholesterol Level 110 <200 mg/dL LDL Cholesterol 55 0-99 mg/dL HDL Cholesterol 50 29-71 mg/dL Thyroid Stimulating Hormone (TSH) 2.52 0.36-3.74 uIU/mL Coagulation Labs: Test 02/18/25 14:15 02/18/25 11:02 Range/Units Activated Clotting Time > 400 H 100-180 SEC Activated Partial Thromboplast Time 30.1 # 26.3-35.5 SEC DIAGNOSTICS / RADIOLOGY RESULTS: [ ] IMAGING REPORT Signed PATIENT: DARREL PEARSON MR#: [id number] : 1965 SEX: M AGE: 59 LOCATION: [facility] ORDER 7 STATUS: ADM IN REPORT#: [id number] SERVICE REASON: Fever ORDERING PHYSICIAN: DANIEL JESUS MD PROCEDURE: CXR1VW - CHEST 1VW Exam Type: CHEST 1VW Clinical Information: Fever Comparison: None Findings: The lungs are clear of infiltrates. The heart is normal in size. The bony and soft tissue structures of the chest are unremarkable. Impression: Clear lungs. DICTATED BY: TANESHA MARTÍNEZ MD DATE: 02/20/25935 ELECTRONICALLY SIGNED BY: TANESHA MARTÍNEZ MD DATE: 02/20/25937 PLAN NEURO: Minimize central acting medications as possible. Maintain fall precautions, adequate lighting during the day PULMONARY: Supplemental 02 as needed. Maintain aspiration precautions at all times IS Q 1 hour CARDIOVASCULAR: Follow hemodynamics. Vital signs per facility protocol GI & NUTRITION: Continue with nutritional support. Continue stool softeners and laxatives as needed. KIDNEYS & ELECTROLYTES: Strict monitoring of intake, output and overall fluid balance. Avoid nephrotoxic medications to the extent possible. Medications to be dosed according to renal function. Monitor electrolytes and replace as needed ENDOCRINE: Maintain blood glucose between 100-180 at all times. Hypoglycemia protocol in place INFECTIOUS DISEASE: Trend temperature, WBC and procalcitonin level Follow cultures, deescalate antibiotics as soon as possible. Panculture if new onset fever ONCOLOGY/HEMATOLOGY/COAGULATION: Monitor for s/s of bleeding Monitor hemoglobin, coagulation studies as needed SKIN: Pressure ulcer prevention per facility protocol Specialty mattress ORTHO/REHAB: Continue PT/OT Prophylaxis: Continue GI and DVT prophylaxis Code Status: Full Resuscitation Disposition: Per primary team Other: Total patient care time exceeds 35 minutes excluding all procedures. JONI PAN February 20, 2025 10:01
[2025-02-20] MEDS: cefTRIAXone 1G VIAL IVPB SCH (10:09)
[2025-02-20] MEDS: AZITHROMYCIN 500MG+NS 250ML 250 ML IVPB SCH (10:09)
[2025-02-20 10:36] LABS: RAPID GROUP A STREP negative (NEGATIVE)
[2025-02-20 10:47] LABS: COVID19 (SARS ANTIGEN RAPID) PRESUMPTIVE NEGATIVE (NEGATIVE); INFLUENZA TYPE A Negative For Type A (NEGATIVE); INFLUENZA TYPE B Negative For Type B (NEGATIVE)
[2025-02-20] MEDS ORDERED: acetaMINOPHEN 325 MG TAB PO PRN (12:00)
[2025-02-20] MEDS: acetaMINOPHEN 325 MG TAB PO PRN (19:06)
[2025-02-21 02:52] VITALS: BP 112/74; PULSE 75; RESP 14; TEMP 99.1
[2025-02-21 04:08] LABS: HEMATOCRIT 34.1 % (42-54); MEAN CORPUSCULAR HEMOGLOBIN 30.1 pg (27.0-33.0); MEAN CORPUSCULAR VOLUME 88.6 fL (79-99); RED BLOOD CELL COUNT(AUTO) 3.85 MIL/uL (4.50-6.20); RED CELL DISTRIBUTION WIDTH 11.8 % (11.0-15.5); WHITE BLOOD COUNT (AUTO) 14.2 K/uL (4.8-10.8)
[2025-02-21 04:18] LABS: BILIRUBIN,TOTAL 0.5 mg/dL (0.2-1.0); CREATININE 1.1 mg/dL (0.5-1.3); MAGNESIUM 2.2 mg/dL (1.80-2.40); POTASSIUM 3.8 mmol/L (3.5-5.1); TOTAL PROTEIN, SERUM 6.9 g/dL (6.0-8.3)
--- NOTE | 2025-02-21 07:03 | PN ---
[facility] Cardiology Progress Note CARDIOLOGY PROGRESS NOTE FEBRUARY 21, 2025 Problems: 1. Acute inferior wall ST-elevation [place] 2. CAD status post drug-eluting stent in the mid RCA with residual 80% mid circumflex stenosis with LV ejection fraction of 35-40% post [place] 3. Dyslipidemia 4. Hypertension 5. Diabetes mellitus type 2 6. Leukocytosis and low-grade fever when 7. Tobacco dependence This morning blood pressure is running 112/74 heart rate in the 70s the patient still has a low-grade temperature of 99.1�. White count has come down 17322 potassium 3.8 BUN 16 creatinine 1.1. GFR of 78. LDL cholesterol this admission was 55. Urinalysis showed elevated glucose but no signs of infection. The patient continues on aspirin atorvastatin clopidogrel insulin scale metoprolol tartrate pantoprazole and has been started on antibiotics. Screening for influenza a and B and SARS as well as strep all negative. The patient currently feels well. Denies any chest pain or shortness of breath. He has had no cough diarrhea or dysuria. Source of the fever is unclear. White count is coming down. He is awaiting a bed on telemetry. HORACIO SAMS MD February 21, 2025 07:03
[2025-02-21 08:00] VITALS: BP 112/73; PULSE 69; RESP 18; TEMP 98.9
[2025-02-21 09:06] VITALS: O2SAT 97
--- NOTE | 2025-02-21 09:28 | PN ---
[facility] PROGRESS NOTE Date Patient Seen: February 21, 2025 Time of Visit: 09:27 Supervising Physician: Star Chaves mD Primary Care Physician: Daniel Jesus MD Outpatient Specialists: Jerod Sanchez MD Inpatient Consults: DR Edin SIMPSON Attending: Veena Watson MD PROBLEM LIST: -Acute Cystitis not POA - acute inferior wall ST-elevation [place], POA -CAD status post drug-eluting stent in the mid RCA with residual 80% mid circumflex stenosis -leukocytosis -dyslipidemia -essential hypertension -hyperglycemia in the presence of type 2 diabetes mellitus -hypomagnesemia -transaminitis -suspected JAMES undiagnosed and untreated INTERVAL HISTORY: Pts white count improving, no further fevers. NO major overnight events. Pt doing well and denies any s/s of chest pain, sob or palpitations. He has been ambulatin TID well and no complains of dyspnea. Pt with ruine culture growing COLONY COUNT: 10,000 - 20,000 CFU/ML. consistent with UTI, He is stable for DC from pulmonary standpoint. REVIEW OF SYSTEMS: General: No malaise or fever. Neurological: No fainting episodes or seizures. HEENT: No nasal congestion or nasal secretion. Respiratory: No cough, shortness of breath, or wheezing Cardiac: No chest pain, shortness breath or palpitations. Gastrointestinal: No vomiting or diarrhea. Genitourinary: No dysuria hematuria. Skin: No rashes or lesions. Hematological: No bruises or bleeding. Musculoskeletal: No joint pains or arthralgias. Psychiatric: No depression or panic attacks. PHYSICAL EXAM: GENERAL: alert, weak, awake oriented x 3 HEENT: EOMI, Sclera non icteric, moist mucosa NECK: Supple, no JVD, trachea midline LUNGS: Clear breath sounds bilaterally. No wheezes HEART: Regular rate and rhythm. Normal S1 and S2, without murmurs ABD: Abdomen soft, nontender. Bowel sounds present EXT: No clubbing cyanosis or edema, bilateral pedal pulses 2+ NEURO: Alert and oriented to person, follows commands Vital Signs (last 8hr) Date Time Temp Pulse Resp B/P (MAP) Pulse Ox O2 Delivery O2 Flow Rate FiO2 02/21/25 09:06 97 Room Air* 0 21 02/21/25 08:00 99.0 69 18 112/73 96 Room Air 02/21/25 02:52 99.1 75 14 112/74 99 Room Air LABS: Hematology Labs: Test 02/21/25 03:40 Range/Units White Blood Count 14.2 H 4.8-10.8 K/uL Red Blood Count 3.85 L 4.50-6.20 MIL/uL Hemoglobin 11.6 L 14.0-18.0 g/dL Hematocrit 34.1 L 42-54 % Mean Corpuscular Volume 88.6 79-99 fL Mean Corpuscular Hemoglobin 30.1 27.0-33.0 pg Mean Corpuscular Hemoglobin Concent 34.0 32.0-36.0 g/dL Red Cell Distribution Width 11.8 11.0-15.5 % Platelet Count 218 130-400 K/uL Mean Platelet Volume 9.0 7.5-10.5 fL Nucleated Red Blood Cells 0.0 0.0-0.19 % Chemistry Labs: Test 02/21/25 06:11 02/21/25 03:40 Range/Units Whole Blood Glucose 154 H 70-110 MG/DL Sodium Level 133 L 136-145 mmol/L Potassium Level 3.8 3.5-5.1 mmol/L Chloride Level 98 L 101-111 mmol/L Carbon Dioxide Level 31 21-32 mmol/L Blood Urea Nitrogen 16 7-18 mg/dL Creatinine 1.1 0.5-1.3 mg/dL Glomerular Filtration Rate Calc 78 >90 mL/min Random Glucose 144 H 70-105 mg/dL Total Calcium 8.6 8.5-10.1 mg/dL Magnesium Level 2.20 1.80-2.40 mg/dL Total Bilirubin 0.5 # 0.2-1.0 mg/dL Aspartate Amino Transf (AST/SGOT) 100 H 10-37 U/L Alanine Aminotransferase (ALT/SGPT) 55 12-78 U/L Alkaline Phosphatase 38 L 50-136 U/L Total Protein 6.9 6.0-8.3 g/dL Albumin 3.0 L 3.5-5.0 g/dL DIAGNOSTICS / RADIOLOGY RESULTS: [ ] PLAN NEURO: Minimize central acting medications as possible. Maintain fall precautions, adequate lighting during the day PULMONARY: Supplemental 02 as needed. Maintain aspiration precautions at all times IS Q 1 hour CARDIOVASCULAR: Follow hemodynamics. Vital signs per facility protocol GI & NUTRITION: Continue with nutritional support. Continue stool softeners and laxatives as needed. KIDNEYS & ELECTROLYTES: Strict monitoring of intake, output and overall fluid balance. Avoid nephrotoxic medications to the extent possible. Medications to be dosed according to renal function. Monitor electrolytes and replace as needed ENDOCRINE: Maintain blood glucose between 100-180 at all times. Hypoglycemia protocol in place INFECTIOUS DISEASE: Trend temperature, WBC and procalcitonin level Follow cultures, deescalate antibiotics as soon as possible. Panculture if new onset fever ONCOLOGY/HEMATOLOGY/COAGULATION: Monitor for s/s of bleeding Monitor hemoglobin, coagulation studies as needed SKIN: Pressure ulcer prevention per facility protocol Specialty mattress ORTHO/REHAB: Continue PT/OT Prophylaxis: Continue GI and DVT prophylaxis Code Status: Full Resuscitation Disposition: Per primary team Other: Total patient care time exceeds 35 minutes excluding all procedures. JONI PAN [facility] February 21, 2025 09:28
[2025-02-21 12:00] VITALS: BP 110/66; PULSE 92; RESP 18; TEMP 99.1
[2025-02-21] MEDS ORDERED: AMOX1TAB16 PO (12:35)
[2025-02-21] MEDS ORDERED: METO25 PO (12:35)
[2025-02-21] MEDS ORDERED: ATOR40TA69 PO (12:35)
[2025-02-21] MEDS ORDERED: CLOP-31 PO (12:35)
[2025-02-21] MEDS ORDERED: ASPI-1005 PO (12:35)
[2025-02-21] MEDS ORDERED: NITR0.4T50 SL (12:36)
--- NOTE | 2025-02-21 13:38 | DS ---
Discharge Summary Hospital Course Summary: This is a 59-year-old male that was transferred from [facility] with a in acute inferior STEMI went straight to left heart catheterization. Patient reports his chief complaint was chest pain. Onset patient reported he was awakened at 1:00 a.m. this morning. State 10/10 on pain scale. Radiate to bilateral upper arm. Aggravating factors deep breath, alleviating factors none. Associated symptoms shortness a breath, diaphoretic, GI symptoms. Patient went straight to ER for further evaluation and treatment. Patient is reports smoking tobacco products cigarettes one pack every two weeks. Drinks beer on pack. Patient is seen in room 206 left heart catheterization status post drug-eluting stent in the mid RCA with residual 80% mid circumflex stenosis Patient is fully awake alert oriented x3. right groin no numbness no tingling, the patient is chest pain free now. During the course of the hospitalization the patient had a temperature of 100.2�, full septic workup was done, unremarkable. Patient is started on empiric IV antibiotics, today WBC trending down 14.2. The patient remains hemodynamically stable, alert oriented x3, denies dizziness, no headache, no blurry vision, no chest pain, denies shortness for breath, no cough, no palpitation, no nausea, no vomiting, no abdominal pain, no diarrhea, no constipation, no melena, no hematochezia, no hematemesis, no hematuria, no dysuria. Patient cleared from cardiac standpoint to be discharged home and follow up as an outpatient. Bottom Cager(s): Cardiology Procedure(s): [place] [id number] [id number] Cath Procedure Report CATH PROCEDURE REPORT CARDIAC CATHETERIZATION REPORT Date of Service: February 18, 2025 Left heart catheterization and PCI report After informed consent the patient was prepped and draped in the usual fashion. He presented to [facility] with an acute inferior wall ST-elevation [place]. While there he received aspirin 325 clopidogrel 600 and heparin 8000 bolus and heparin drip. The patient was given 3 mg of morphine for severe pain. A six [place] sheath was introduced into the right femoral artery using modified Seldinger technique. A Karen four right six guiding catheter with side holes was advanced over guidewire to the aortic root. Wire was removed and catheter engaged into the [place] right coronary artery. Visualization of the artery demonstrated occlusion of the mid RCA. A choice PT extra-support wire was placed across the area of stenosis into the posterolateral branch. There was re perfusion of the RCA after crossing the stenosis with the wire. Attempts to pass a 4.0 x 18 mm drug-eluting stent were unsuccessful due to severity of stenosis. In addition the guiding catheter provided poor backup. Wire and catheter removed and and AL1 guiding catheter was advanced over guidewire to the aortic root. Wire was removed and catheter engaged into the [place] right c oronary artery. A choice PT extra-support wire was then plastic again through the stenosis into the posterolateral branch. Attempts to pass the stent were unsuccessful even with guiding support. The stent was removed and a 2.5 x 12 mm balloon advanced but again would not cross the area of stenosis. Even a 1.5 x 12 mm balloon would not cross. A rudy wire was then placed in the 1.5 mm balloon was successfully crossed and dilated to eight atmospheres. Balloon was removed and the artery was then dilated with a 2.5 x 12 mm balloon. Again attempts to cross with the stent were unsuccessful and the stent was removed. A three point 0 by 15 mm balloon was then used to dilate the area of stenosis to 12 atmospheres. Balloon was removed and the 4.0 x 18 mm stent was then successfully placed across the area of stenosis and dilated to 13 atmospheres. Stenosis was reduced from 100% to 0% with normal SERGIO flow. Wires and catheter was removed and the vessel was then re visualized with a Karen four right six [place] diagnostic catheter which showed the stent to be widely patent but did show some distal thrombus. The patient received an Integrilin bolus and Integrilin drip was started. Heparin was restarted. Catheter was removed and a Karen four left six [place] diagnostic catheter was advanced over guidewire to the aortic root. The left coronary system was visualized in multiple views. This demonstrated a widely patent left main and LAD and diagonal arteries. The circumflex artery is a nondominant vessel and gives rise to a single large obtuse marginal artery. There was a mid 80% stenosis in the circumflex artery before the obtuse marginal artery. The catheter was removed and a pigtail catheter was then advanced over guidewire and across the aortic valve. He modynamics measured and a pullback with a continuous hemodynamic monitoring was performed. There was no evidence of aortic stenosis left ventricular end- diastolic pressure was 22 mm Hg. Summary: Successful drug-eluting stent to the mid RCA with distal thrombus in the posterolateral branch and PDA treated with Integrilin and heparin. The patient has been transferred to the intensive care unit with line in place for further management. Report dictated by HORACIO Valencia MD, MD February 18, 2025 03:29 Electronically Signed by: HORACIO SAMS MD02/18/25 0329 Electronically Co-Signed by: Assessment/Plan: Final Diagnosis acute inferior STEMI POA Status post left heart catheterization February 18, 2025 with successful drug-eluting stent to the mid RCA with distal thrombus at the posterolateral branch of [employer] treated with Integrilin and heparin DM type II Essential HTN Hyperlipidemia obesity: BMI 32.5 active smoker POA ETOH use POA Leukocytosis, likely reactive, sepsis ruled out Discharge Instructions: The patient to be discharged home today, to follow with primary care physician, as well as pharmacy consultant Dr. Sams as an outpatient. Patient advised to return to the hospital if his condition changes. Patient alert oriented x3, agreed and understood the information provided. Home Medications: Active Scripts Nitroglycerin (Nitroglycerin) 0.4 Mg Tab.subl, 1 TAB SL AD for chest pain, #25 TAB 1 Refill 1st sign of attack; may repeat every 5 mins; if pain persists after 3 in 15 min, medical attention is recommended Prov:CORTEZ GALVAN MD 02/21/25 Amoxicillin/Potassium Clav (Amox Tr-K Clv 875-125 mg Tab) 875 Mg-125 Mg Tablet, 1 TAB PO BID for 7 Days, #14 TAB 0 Refills Prov:CORTEZ GALVAN MD 02/21/25 Metoprolol Tartrate (Lopressor) 25 Mg Tab, 12.5 MG PO BID for 30 Days, #30 TAB 1 Refill Prov:CORTEZ GALVAN MD 02/21/25 Clopidogrel Bisulfate (Plavix) 75 Mg Tablet, 75 MG PO DAILY for 30 Days, #30 TAB 1 Refill Prov:CORTEZ GALVAN MD 02/21/25 Atorvastatin Calcium (LIPITOR) 40 Mg Tablet, 40 MG PO HS for 30 Days, #30 TAB 1 Refill Prov:CORTEZ GALVAN MD 02/21/25 Aspirin (ASPIRIN 81MG CHEW TAB) 81 Mg Tab.chew, 81 MG PO DAILY for 30 Days, #30 TAB.CHEW 1 Refill Prov:CORTEZ GALVAN MD 02/21/25 Reported Medications Metformin HCl (Metformin HCl) 1,000 Mg Tablet, 1 TAB PO BID 02/18/25 Atorvastatin Calcium (Atorvastatin Calcium) 40 Mg Tablet, 1 TAB PO HS 02/18/25 Discontinued Reported Medications Lisinopril (Lisinopril) 10 Mg Tablet, 1 TAB PO DAILY 02/18/25 Time spent arranging discharge: 31-60 minutes CORTEZ GALVAN MD February 21, 2025 13:38
--- NOTE | 2025-02-24 18:01 | NUR ---
Transitional Phone Call Spoke to patient, states "I'm good and feeling good... went to work but had to come back to rest but I', good, really." States he has all the prescribed medication and it was explained "very well;" denies concerns or questions. States has the follow up appointment with PCP - Dr. Jesus on Monday at 1140. No questions or concerns at this time.
== END 2025-02-21 14:50 | disposition home or self-care (01) | DRG 322 ==
LOC: 2BH 02:01
PROVIDERS: ADMIT Internal Medicine; ATTEND Internal Medicine
PROC: 027034Z Dilation of Coronary Artery, One Artery with Drug-eluting Intraluminal Device, Percutaneous Approach (ICD-10-PCS; principal; 2025-02-18)
PROC: 4A023N7 Measurement of Cardiac Sampling and Pressure, Left Heart, Percutaneous Approach (ICD-10-PCS; 2025-02-18)
PROC: B2111ZZ Fluoroscopy of Multiple Coronary Arteries using Low Osmolar Contrast (ICD-10-PCS; 2025-02-18)
DX: I21.19 ST elevation (STEMI) myocardial infarction involving other coronary artery of inferior wall (principal); N30.00 Acute cystitis without hematuria; I25.10 Atherosclerotic heart disease of native coronary artery without angina pectoris; D72.829 Elevated white blood cell count, unspecified; E11.65 Type 2 diabetes mellitus with hyperglycemia; E66.9 Obesity, unspecified; E78.5 Hyperlipidemia, unspecified; E83.42 Hypomagnesemia; F17.210 Nicotine dependence, cigarettes, uncomplicated; I10 Essential (primary) hypertension; Z68.32 Body mass index [BMI] 32.0-32.9, adult; I25.2 Old myocardial infarction; Z82.49 Family history of ischemic heart disease and other diseases of the circulatory system; Z83.3 Family history of diabetes mellitus; Z95.5 Presence of coronary angioplasty implant and graft
CPT/HCPCS: 36415; 71045; 80048; 80053; 80061; 81001; 82550; 82948; 83036; 83735; 84100; 84443; 84484; 85027; 85347; 85610; 85730; 87040; 87086; 87186; 87426; 87804; 87880; 93005; 93306; 93356; 93458; 99156; 99157; C1769; C1887; C1894; C9606; G0378; J0456; J0461; J0583; J0696; J1265; J1327; J1644; J1650; J1815; J2270; J3490; Q9967; C1725; C1874; Q9965